=== PATIENT | female | born 1940 | race Caucasian/White ===

== ENCOUNTER → 2019-08-16 10:52 | Outpatient (CLI) | payer MEDICARE, SELFPAY ==
--- NOTE | ~2019-08-16 | MM_ITS ---
EXAMINATION: MM screening [facility] BI w yolande HISTORY: Screening mammogram TECHNIQUE: Craniocaudal and mediolateral oblique 3-D tomosynthesis images were obtained and synthetic 2-D images were generated. CAD analysis was submitted and interpreted. COMPARISON: 07/06/2018 BREAST PARENCHYMAL COMPOSITION: There are scattered areas of fibroglandular density. FINDINGS: Stable intramammary lymph nodes are noted in the upper outer quadrant of the breasts. There is no evidence of suspicious mass, calcification, or architectural distortion to suggest malignancy in either breast. There has been no suspicious interval change. IMPRESSION: 1. No mammographic evidence of malignancy. 2. Recommend routine screening mammography in one year. BI-RADS Category 2: Benign finding(s). Reviewed, dictated and finalized at location A. IAGE OPERATOR
== END ==
PROVIDERS: PCP Internal Medicine; Visit Provider Internal Medicine
DX: Z12.31 Encounter for screening mammogram for malignant neoplasm of breast (principal)
CPT/HCPCS: 77063; 77067

== ENCOUNTER 2019-10-30 12:45 | Emergency (ER) | payer MEDICARE, SELFPAY ==
[2019-10-30 12:56] VITALS: BP 104/59; PULSE 91; RESP 18; TEMP 36.8; O2SAT 97
--- NOTE | 2019-10-30 13:08 | ED.GENADULT ---
HPI - General Adult General Chief complaint: Unspecified Stated complaint: thrush Time Seen by Provider: 10/30/19 13:09 Source: patient and RN notes reviewed History of Present Illness HPI narrative: Patient is a 79-year-old female presents the urgent care with complaints of oral thrush. Patient states that it started approximately 2 to 3 weeks ago. States that she does use a tongue scraper. Patient states that it has gotten brown . However patient does report of eating chocolate and drinking a lot of coffee. Patient denies any history of oral thrush and denies any recent use of antibiotics. No other acute complaints. No acute distress noted. Patient aware of the plan of care. Related Data Home Medications Medication Instructions Recorded Confirmed amitriptyline 25 mg tablet 25 mg PO DAILY tablet 06/09/19 06/09/19 alprazolam 10/30/19 fluticasone propionate INTRANASAL 10/30/19 Allergies Allergy/AdvReac Type Severity Reaction Status Date / Time cefuroxime Allergy Mild Verified 06/08/11 10:11 ampicillin Allergy Unknown Verified 08/22/17 09:04 chlordiazepoxide Allergy Unknown Verified 08/22/17 09:04 ciprofloxacin Allergy Unknown Verified 12/07/18 13:33 codeine Allergy Unknown Verified 08/22/17 09:04 Penicillins Allergy Unknown Verified 03/07/15 14:50 tetracycline Allergy Unknown Verified 08/22/17 09:05 CIPROFLOXACIN HCL Allergy Unknown BAD Uncoded 02/16/18 15:59 SECONDARY REACTION, YEAST INFECT. ECT. CLIDINIUM BROMIDE Allergy Unknown RASH Uncoded 02/16/18 15:59 SODIUM PENTATHAL Allergy Unknown HYPERTENSIO Uncoded 07/12/13 06:56 N Review of Systems Review of Systems: Narrative: CONSTITUTIONAL: Denies fever, chills, or sweats. EYES: Denies visual changes, redness, or discharge. ENT: Denies rhinorrhea, congestion or otalgia. Reports of oral thrush and mild sore throat CARDIOVASCULAR: Denies chest pain, palpitations, or edema. RESPIRATORY: Denies cough or dyspnea. GASTROINTESTINAL: Denies abdominal pain, nausea, vomiting, or diarrhea. GENITOURINARY: Denies dysuria or hematuria. SKIN: Denies rash or itching. MUSCULOSKELETAL: Denies back pain, joint pain, or myalgia. NEUROLOGIC: Denies headache, numbness, or weakness. All other systems reviewed are negative, except as documented in HPI. PMFSH Social History Social History Smoking status: Never smoker Second hand tobacco smoke exposure: No Alcohol intake: current Comments At the time of my signature, I reviewed and agree with the nursing past medical, surgical, social, and family history. There is no relevant family history pertinent to the patient complaint. Exam Narrative: Exam Narrative: GENERAL: This is a well-nourished, well-developed patient, in no apparent distress. HEAD: normocephalic, atraumatic. EYES: PERRL. Sclera clear/white. Vision is grossly intact. EARS: External ears normal NOSE: External nose normal with no obvious nasal discharge THROAT: Mucous membranes moist, posterior pharynx clear. Very mild oral candidiasis noted to the posterior oropharynx NECK: Neck supple SKIN: warm, intact with no suspicious lesions or rash, good texture and turgor. NEURO: awake, alert, and oriented to person, place and time. There were no obvious focal neurologic abnormalities. EXTREMITIES: No clubbing, cyanosis, or edema. Course Vital Signs Vital signs: Vital Signs Temperature 98.2 F 10/30/19 12:56 Pulse Rate 91 10/30/19 12:56 Respiratory Rate 18 10/30/19 12:56 Blood Pressure 104/59 L 10/30/19 12:56 Pulse Oximetry 97 10/30/19 12:56 Temperature 98.2 F 10/30/19 12:56 Pulse Rate 91 10/30/19 12:56 Respiratory Rate 18 10/30/19 12:56 Blood Pressure 104/59 L 10/30/19 12:56 Pulse Oximetry 97 10/30/19 12:56 Reviewed Medical Decision Making MDM Narrative Medical decision making narrative: Advised the patient to continue using the t
== END 2019-10-30 13:24 | disposition home or self-care (01) ==
PROVIDERS: Emergency Provider Nurse Practitioner Family; PCP Internal Medicine
DX: B37.0 Candidal stomatitis (principal); E78.00 Pure hypercholesterolemia, unspecified; E03.9 Hypothyroidism, unspecified
CPT/HCPCS: 99213; G0463

== ENCOUNTER 2019-12-08 17:02 | Emergency (ER) | payer MEDICARE, SELFPAY ==
[2019-12-08 17:14] VITALS: BP 144/74; PULSE 82; RESP 16; TEMP 36.9; O2SAT 99
--- NOTE | 2019-12-08 17:23 | ED.URI ---
HPI - URI/Sore Throat General Chief Complaint: Upper Respiratory Infection Stated Complaint: Sore Throat Time Seen by Provider: 12/08/19 17:24 Source: patient and RN notes reviewed Mode of arrival: ambulatory Limitations: no limitations History of Present Illness HPI Narrative: This is a 71 years old female presented office for evaluation of sore throat for a couple days. Denies any other associated symptoms include fever, ear pain, cough, vomiting, or diarrhea. Denies any new medication. Related Data Home Medications Medication Instructions Recorded Confirmed amitriptyline 25 mg tablet 25 mg PO DAILY tablet 06/09/19 06/09/19 alprazolam 10/30/19 fluticasone propionate INTRANASAL 10/30/19 Allergies Allergy/AdvReac Type Severity Reaction Status Date / Time cefuroxime Allergy Mild Verified 06/08/11 10:11 ampicillin Allergy Unknown Verified 08/22/17 09:04 chlordiazepoxide Allergy Unknown Verified 08/22/17 09:04 ciprofloxacin Allergy Unknown Verified 12/07/18 13:33 codeine Allergy Unknown Verified 08/22/17 09:04 Penicillins Allergy Unknown Verified 03/07/15 14:50 tetracycline Allergy Unknown Verified 08/22/17 09:05 CIPROFLOXACIN HCL Allergy Unknown BAD Uncoded 02/16/18 15:59 SECONDARY REACTION, YEAST INFECT. ECT. CLIDINIUM BROMIDE Allergy Unknown RASH Uncoded 02/16/18 15:59 SODIUM PENTATHAL Allergy Unknown HYPERTENSIO Uncoded 07/12/13 06:56 N Review of Systems Review of Systems: Narrative: CONSTITUTIONAL: Denies fever or feeling ill ENT: Denies rhinorrhea, congestion, otalgia. CARDIOVASCULAR: Denies chest pain RESPIRATORY: Denies dyspnea, cough GASTROINTESTINAL: Denies abdominal pain, nausea, vomiting, diarrhea. GENITOURINARY: Denies urinary symptoms SKIN: Denies rash MUSCULOSKELETAL: Denies acute back pain NEUROLOGIC: Denies lightheaded PMFSH Past Medical History Medical History Adult hypothyroidism Chronic GERD Irritable bowel syndrome with constipation Other and unspecified hyperlipidemia Postmenopausal Raynaud's disease without gangrene Family History Family History Father Cerebrovascular accident Social History Social History (Reviewed 12/08/19 @ 17:32 by ALLISON Navarro Smoking status: Never smoker Second hand tobacco smoke exposure: No Alcohol intake: current Gender identity (if verbalized by the patient): Female Comments At time of signature, I agree with nursing past medical, surgical, social and family history. There is no relevant family history pertinent to the presenting complaint. Exam Narrative: Exam Narrative: GENERAL: This is a well-nourished, well-developed patient, in no apparent distress. THROAT: Mucous membranes moist, posterior pharynx clear. Thrush noted NECK: Neck supple, non-tender without lymphadenopathy, masses or thyromegaly. CARDIOVASCULAR: Regular rate and rhythm without murmurs, gallops, or rubs. RESPIRATORY: Clear to auscultation. Breath sounds equal bilaterally. No wheezes, rales, or rhonchi. GASTROINTESTINAL: Abdomen soft, non-tender, nondistended. Bowel sounds are active. No guarding. SKIN: warm, intact with no suspicious lesions or rash, good texture and turgor. NEURO: awake, alert, and oriented to person, place and time. There were no obvious focal neurologic abnormalities. Steady gait [place] Coma Scale Eye Opening: Spontaneous 4 [place] Coma Scale Motor: Obeys Commands 6 Sandra Coma Scale Verbal: Oriented 5 Course Vital Signs Vital signs: Vital Signs Temperature 98.5 F 12/08/19 17:14 Pulse Rate 82 12/08/19 17:14 Respiratory Rate 16 12/08/19 17:14 Blood Pressure 144/74 H 12/08/19 17:14 Pulse Oximetry 99 12/08/19 17:14 Temperature 98.5 F 12/08/19 17:14 Pulse Rate 82 12/08/19 17:14 Respiratory Rate 16 12/08/19 17:14 Blood Pressure 144/74 H 12/08/19 17:1
== END 2019-12-08 17:36 | disposition home or self-care (01) ==
PROVIDERS: Emergency Provider Nurse Practitioner; PCP Internal Medicine
DX: B37.0 Candidal stomatitis (principal); E03.9 Hypothyroidism, unspecified; K21.9 Gastro-esophageal reflux disease without esophagitis; K58.1 Irritable bowel syndrome with constipation; I73.00 Raynaud's syndrome without gangrene; R03.0 Elevated blood-pressure reading, without diagnosis of hypertension
CPT/HCPCS: 87081; 87880; 99213; G0463

== ENCOUNTER 2020-03-25 12:39 | Emergency (ER) | payer MEDICARE, SELFPAY ==
--- NOTE | ~2020-03-25 | XR_ITS ---
EXAMINATION: XR chest 2V 03/25/2020 14:24 INDICATION: Chest and upper abdominal pain PROCEDURE: 2 view chest COMPARISON: 07/02/2013 FINDINGS: The lungs are clear. The cardiomediastinal silhouette is within normal limits. There are no pleural effusions. There is no pneumothorax suspected. Mild pectus excavatum. There are cholecys tectomy clips. IMPRESSION: 1: NO ACUTE CARDIOPULMONARY DISEASE. Reviewed, dictated and finalized at location A.
--- NOTE | ~2020-03-25 | CT_ITS ---
EXAMINATION: CT abdomen pelvis w con DATE: 03/25/2020 15:15 INDICATION: Upper abdominal pain with nausea TECHNIQUE: Computed tomography (CT) of the abdomen and pelvis was performed with 100 cc Omnipaque 350 intravenous contrast. The dose-length product was 529.59 mGy-cm. Automated exposure control and iter ative reconstruction technique were employed. COMPARISON: CT dated 02/14/2015. FINDINGS: Lung bases unremarkable. Heart size normal. Small hiatal hernia. 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 Status post cholecystectomy. There is fluid in the stomach small bowel with air- fluid levels. Consider gastroenteritis in the appropriate setting. No obstruction. Colonic diverticul osis without evidence for diverticulitis. Small umbilical hernia containing fat. The liver, spleen, pancreas, adrenal glands and kidneys are unremarkable. No free air or free fluid. Status post hysterectomy. IMPRESSION: 1. Fluid in the stomach and small bowel, suspicious for gastroenteritis. No obstruction. 2: Small hiatal hernia. Reviewed, dictated and finalized at location A. IMPRESSION: 1. Fluid in the stomach and small bowel, suspicious for gastroenteritis. No obs truction. 2: Small hiatal hernia.
[2020-03-25 12:49] VITALS: BP 165/77; PULSE 90; RESP 16; TEMP 36.1; O2SAT 98
--- NOTE | 2020-03-25 13:43 | ECG_ITS ---
Measurements Intervals [place] Rate: 80 P: 46 WA: 163 QRS: 32 QRSD: 89 T: 64 QT: 372 QTc: 429 Interpretive Statements SINUS RHYTHM WITH MARKED SINUS ARRHYTHMIA ATRIAL PREMATURE COMPLEXES BASELINE ARTIFACT- I, II, III, AVR, AVL, AVF BORDERLINE ECG Electronically Signed On 03-25-2020 17:04:06 CDT by Toni Sharif D.O.
[2020-03-25 13:50] VITALS: PULSE 54
[2020-03-25] MEDS: FAMOTIDINE 20 MG/2 ML VIAL IV PUSH (14:03)
[2020-03-25] MEDS: ONDANSETRON INJ 4 MG/2 ML VIAL IV PUSH (14:04)
[2020-03-25 14:13] LABS: Alanine Aminotransferase 16 U/L (4-35); Albumin Level 4.5 g/dL (3.5-5.1); Alkaline Phosphatase 92 U/L (38-126); Anion Gap 6 mmol/L (8-16); Aspartate Amino Transferase 26 U/L (14-36); Bilirubin,Total 0.9 mg/dL (0.2-1.3); Blood Urea Nitrogen 15 mg/dL (7-17); Calcium 9.9 mg/dL (8.4-10.2); Carbon Dioxide 25 mmol/L (22-30); Chloride 104 mmol/L (98-107); Estimated CRCL calculation 47 ml/min; Estimated Glomerular Filt Rate > 60; Glucose 111 mg/dL (65-105); Lipase 59 U/L (23-300); Potassium 4.4 mmol/L (3.4-5.0); Sodium 135 mmol/L (137-145)
[2020-03-25 14:14] LABS: Basophils Percent Auto 0.5 % (0.2-1.2); Eosinophils Absolute Auto 0.1 K/mm3 (0-0.3); Immature Granulocyte Absolute 0.02 K/mm3 (0.00-0.031); Immature Granulocyte Percent A 0.3 % (0-0.5); Mean Corpuscular HGB Conc 34.1 g/dl (32-36); Mean Corpuscular Hemoglobin 31.4 pg (26-34); Mean Corpuscular Volume 92.1 fl (80-100); Monocytes Absolute Auto 0.6 K/mm3 (0.1-0.6); Monocytes Percent Auto 7.7 % (2.6-8.5); Neutrophils Percent Auto 64.5 % (45.5-73.1); Platelet Count Result 302 k/mm3 (150-375); Red Blood Count 4.78 M/mm3 (4.2-5.4); Red Cell Distribution Width 13.1 % (11.5-14.5); White Blood Count 7.7 K/mm3 (4.5-10.0)
[2020-03-25 14:27] LABS: INR 0.9; Prothrombin Time 11.9 Seconds (11.1-14.7)
--- NOTE | 2020-03-25 14:27 | PC.NURSE ---
This RN into pts room to give medication . Pt becomes upset and asks why is this all being done when i came in for thrush ? I dont see the need of all of this. I informed pt that she could decline treatment of any kind. Pt states that she will take the medication and do EKG but will not do urine sample. Informed TONYA Thomas of this.
--- NOTE | 2020-03-25 14:48 | ED.GENADULT ---
HPI - General Adult General Chief complaint: Unspecified Stated complaint: thrush Time Seen by Provider: 03/25/20 13:14 Source: patient Mode of arrival: ambulatory Limitations: other (poor historian) History of Present Illness HPI narrative: This is a 79 year old female that presents to the ER with possible thrush. Reports she has been treated for this recently and started to have some symptoms again today. Reports nausea and upper abdominal pain. Reports the pain is burning. Denies fever, sore throat, chest pain, shortness of breath or dysuria. Related Data Home Medications Medication Instructions Recorded Confirmed amitriptyline 25 mg tablet 25 mg PO DAILY tablet 06/09/19 06/09/19 alprazolam 10/30/19 fluticasone propionate INTRANASAL 10/30/19 Allergies Allergy/AdvReac Type Severity Reaction Status Date / Time cefuroxime Allergy Mild Unknown Verified 03/25/20 12:53 ampicillin Allergy Unknown Unknown Verified 03/25/20 12:53 chlordiazepoxide Allergy Unknown Unknown Verified 03/25/20 12:53 ciprofloxacin Allergy Unknown Unknown Verified 03/25/20 12:53 codeine Allergy Unknown Unknown Verified 03/25/20 12:53 Penicillins Allergy Unknown Unknown Verified 03/25/20 12:53 tetracycline Allergy Unknown Unknown Verified 03/25/20 12:53 CIPROFLOXACIN HCL Allergy Unknown BAD Uncoded 03/25/20 12:54 SECONDARY REACTION, YEAST INFECT. ECT. CLIDINIUM BROMIDE Allergy Unknown RASH Uncoded 03/25/20 12:54 SODIUM PENTATHAL Allergy Unknown HYPERTENSIO Uncoded 03/25/20 12:54 N Review of Systems Review of Systems: Narrative: CONSTITUTIONAL: Denies fever ENT: Denies sore throat CARDIOVASCULAR: Reports chest pain RESPIRATORY: Denies dyspnea. GASTROINTESTINAL: Reports abdominal pain, nausea. Denies vomiting GENITOURINARY: Denies dysuria All systems reviewed & are unremarkable except as noted in HPI and below PMFSH Social History Social History Smoking status: Never smoker Second hand tobacco smoke exposure: No Alcohol intake: current Gender identity (if verbalized by the patient): Female Exam Narrative: Exam Narrative: GENERAL: Elderly, well-nourished, and in no acute distress. HEAD: Normocephalic, atraumatic. EYES: EOMI. ENT: Nares clear, no rhinorrhea or epistaxis. Mucous membranes moist. Oropharynx without tonsillar hypertrophy exudate or other lesions. No evidence of thrush. Bilateral TMs pearly ponce non-bulging NECK: Supple. No adenopathy or masses. CHEST: Clear to auscultation. No respiratory distress. No wheezes rales or rhonchi HEART: Regular rate and rhythm. No murmur heard. Normal peripheral pulses. ABDOMEN: Soft, nondistended, normal active bowel sounds. Mild tenderness to palpation in the epigastrium, without guarding EXTREMITIES: Normal range of motion. No edema. SKIN: Warm, dry, no rash. NEURO: No focal deficits. Alert and oriented x3. PSYCH: Normal mood and affect Course Vital Signs Vital signs: Vital Signs Temperature 97 F L 03/25/20 12:49 Pulse Rate 90 03/25/20 12:49 Respiratory Rate 16 03/25/20 12:49 Blood Pressure 165/77 H 03/25/20 12:49 Pulse Oximetry 98 03/25/20 12:49 Temperature 97 F L 03/25/20 12:49 Pulse Rate 54 L 03/25/20 13:50 Respiratory Rate 16 03/25/20 12:49 Blood Pressure 165/77 H 03/25/20 12:49 Pulse Oximetry 98 03/25/20 12:49 Medical Decision Making MDM Narrative Medical decision making narrative: Patient presents to the emergency department for upper abdominal discomfort and nausea. Reports she had been diagnosed with thrush recently and was worried she had thrush again. No evidence of thrush on exam today. She is afebrile and nontoxic-appearing. CBC is without leukocytosis. Metabolic panel without concerning findings. Lipase is normal. CT scan of the abdomen and pelvis is suspicious for gastroenteritis. Chest x-ray without acute findings. EKG without concerning c
[2020-03-25 15:58] VITALS: BP 137/73; PULSE 88; RESP 18; O2SAT 98
== END 2020-03-25 16:24 | disposition home or self-care (01) ==
PROVIDERS: Physician Assistant; Emergency Provider Emergency Medicine; PCP Internal Medicine
DX: K52.9 Noninfective gastroenteritis and colitis, unspecified (principal); K44.9 Diaphragmatic hernia without obstruction or gangrene; I49.1 Atrial premature depolarization
CPT/HCPCS: 36415; 71046; 74177; 80053; 83690; 85025; 85610; 85730; 93005; 96374; 96375; 99284; J2405; Q9967

== ENCOUNTER 2020-08-08 13:08 | Emergency (ER) | payer MEDICARE, SELFPAY ==
--- NOTE | ~2020-08-08 | XR_ITS ---
EXAMINATION: XR chest 2V 08/08/2020 13:50 INDICATION: Cough. Transient alteration of awareness. PROCEDURE: 2 view chest COMPARISON: 03/25/2020 FINDINGS: The lungs are clear. The cardiomediastinal silhouette is within normal limits. There are no pleural effusions. There is no pneumothorax suspected. IMPRESSION: 1: NO ACUTE CARDIOPULMONARY DISEASE. Reviewed, dictated and finalized at location B. H COORDINATOR
[2020-08-08 13:12] VITALS: BP 113/76; PULSE 94; RESP 18; TEMP 36.4; O2SAT 98
--- NOTE | 2020-08-08 13:35 | PC.NURSE ---
Spoke with granddaughter (Nneka) in regards to patient's memory status. Per Nneka she is forgetful and lately have had a hard time keeping patient on topic when speaking to her.
--- NOTE | 2020-08-08 13:46 | ED.GENADULT ---
HPI - General Adult General Chief complaint: Upper Respiratory Infection Stated complaint: cold symptoms, wants COVID swabbed Time Seen by Provider: 08/08/20 13:28 History of Present Illness HPI narrative: Patient is a 79-year-old female that presents the emergency department with chief complaint of thrush and postnasal drip. Patient was seen at urgent care and was sent to the emergency department because they wanted her tested for COVID-19. Patient currently denies shortness of breath denies fever states that she has had thrush before in her throat feels like whenever she has had thrush past. Patient states that she has had a postnasal drip that is trickling down the back of her throat and has been causing her problems. Related Data Home Medications Medication Instructions Recorded Confirmed amitriptyline 25 mg tablet 25 mg PO DAILY tablet 06/09/19 06/15/20 alprazolam 10/30/19 06/15/20 fluticasone propionate INTRANASAL 10/30/19 06/15/20 Allergies Allergy/AdvReac Type Severity Reaction Status Date / Time ampicillin Allergy Mild Rash Verified 08/08/20 13:19 cefuroxime Allergy Mild Hives Verified 08/08/20 13:19 chlordiazepoxide Allergy Mild Hives Verified 08/08/20 13:19 ciprofloxacin Allergy Mild Diarrhea Verified 08/08/20 13:19 codeine Allergy Mild pt does Verified 08/08/20 13:19 not know Penicillins Allergy Mild pt does Verified 08/08/20 13:19 not know tetracycline Allergy Mild pt does Verified 08/08/20 13:19 not know CIPROFLOXACIN HCL Allergy Mild BAD Uncoded 08/08/20 13:19 SECONDARY REACTION, YEAST INFECT. ECT. CLIDINIUM BROMIDE Allergy Mild RASH Uncoded 08/08/20 13:19 SODIUM PENTATHAL Allergy Mild HYPERTENSIO Uncoded 08/08/20 13:19 N Review of Systems Review of Systems: Narrative: A 10 system review of systems was completed on the patient and is negative except for what is stated in the HPI. Nursing and ancillary documentation was reviewed. [facility] Past Medical History Medical History (Updated 08/08/20 @ 14:24 by Ayo Villalta MD) Adult hypothyroidism Chronic GERD Irritable bowel syndrome with constipation Other and unspecified hyperlipidemia Postmenopausal Raynaud's disease without gangrene Family History Family History Father Cerebrovascular accident Social History Social History Smoking status: Never smoker Second hand tobacco smoke exposure: No Alcohol intake: current Gender identity (if verbalized by the patient): Female Exam Narrative: Exam Narrative: GENERAL: Well-appearing, well-nourished, and in no acute distress. HEAD: Normocephalic, atraumatic. EYES: PERRLA and EOMI. ENT: Nares clear, no rhinorrhea or epistaxis. Mucous membranes moist. NECK: Supple. CHEST: Clear to auscultation. No respiratory distress. HEART: Regular rate and rhythm. No murmur heard. Normal peripheral pulses. ABDOMEN: Soft, nontender, nondistended, normal active bowel sounds. EXTREMITIES: Normal range of motion. No edema. SKIN: Warm, dry, no rash. NEURO: No focal deficits. Alert somewhat confused but this is the patient's baseline. PSYCH: Normal mood and affect. Course Vital Signs Vital signs: Vital Signs Temperature 36.4 C L 08/08/20 13:12 Pulse Rate 94 08/08/20 13:12 Respiratory Rate 18 08/08/20 13:12 Blood Pressure 113/76 08/08/20 13:12 Pulse Oximetry 98 08/08/20 13:12 Temperature 36.4 C L 08/08/20 13:12 Pulse Rate 94 08/08/20 13:12 Respiratory Rate 18 08/08/20 13:12 Blood Pressure 113/76 08/08/20 13:12 Pulse Oximetry 98 08/08/20 13:12 Medical Decision Making Vital Signs Vital Signs: Vital Signs Temperature 36.4 C L 08/08/20 13:12 Pulse Rate 94 08/08/20 13:12 Respiratory Rate 18 08/08/20 13:12 Blood Pressure 113/76 08/08/20 13:12 Pulse Oximetry 98 08/08/20
[2020-08-08 22:50] LABS: SARS-CoV-2 RNA PCR Negative
== END 2020-08-08 14:42 | disposition home or self-care (01) ==
PROVIDERS: Emergency Provider Emergency Medicine; PCP Internal Medicine
DX: B37.0 Candidal stomatitis (principal); J06.9 Acute upper respiratory infection, unspecified; Z20.822 Contact with and (suspected) exposure to COVID-19; E03.9 Hypothyroidism, unspecified; K21.9 Gastro-esophageal reflux disease without esophagitis; K58.1 Irritable bowel syndrome with constipation; I73.00 Raynaud's syndrome without gangrene; E78.5 Hyperlipidemia, unspecified
CPT/HCPCS: 71046; 87081; 87880; 99283; C9803; U0003; U0005

== ENCOUNTER 2020-09-19 15:59 | Emergency (ER) | payer MEDICARE, SELFPAY ==
[2020-09-19 16:15] VITALS: BP 146/80; PULSE 98; RESP 17; TEMP 35.7; O2SAT 96
--- NOTE | 2020-09-19 20:09 | ED.GENADULT ---
HPI - General Adult General Chief complaint: Dental/Oral Stated complaint: thrush on tongue Time Seen by Provider: 09/19/20 18:30 Source: patient and family () Mode of arrival: ambulatory Limitations: no limitations History of Present Illness HPI narrative: Patient presents with chief complaint of thrush on her tongue and postnasal drip. Patient states that she has recurrent thrush. Patient does not know why. Patient denies itching or pain in her mouth. Patient reports postnasal drip and states she has been taking some allergy medicine but cannot recall the name. Patient states she used to take Flonase but has not been taking it recently or regularly. She denies fever, chills, sore throat, inability to swallow or handle her fluids or confusion. Patient denies diabetes, autoimmune diseases. Related Data Home Medications Medication Instructions Recorded Confirmed amitriptyline 25 mg tablet 25 mg PO DAILY tablet 06/09/19 06/15/20 alprazolam 10/30/19 06/15/20 fluticasone propionate INTRANASAL 10/30/19 06/15/20 Allergies Allergy/AdvReac Type Severity Reaction Status Date / Time ampicillin Allergy Mild Rash Verified 08/08/20 13:19 cefuroxime Allergy Mild Hives Verified 08/08/20 13:19 chlordiazepoxide Allergy Mild Hives Verified 08/08/20 13:19 ciprofloxacin Allergy Mild Diarrhea Verified 08/08/20 13:19 codeine Allergy Mild pt does Verified 08/08/20 13:19 not know Penicillins Allergy Mild pt does Verified 08/08/20 13:19 not know tetracycline Allergy Mild pt does Verified 08/08/20 13:19 not know CIPROFLOXACIN HCL Allergy Mild BAD Uncoded 08/08/20 13:19 SECONDARY REACTION, YEAST INFECT. ECT. CLIDINIUM BROMIDE Allergy Mild RASH Uncoded 08/08/20 13:19 SODIUM PENTATHAL Allergy Mild HYPERTENSIO Uncoded 08/08/20 13:19 N Review of Systems Review of Systems: Narrative: CONSTITUTIONAL: Denies fever, chills, or sweats. EYES: Denies visual changes, redness, or discharge. ENT: Reports thrush and postnasal drip denies rhinorrhea, congestion, sore throat, or otalgia. CARDIOVASCULAR: Denies chest pain, palpitations, or edema. RESPIRATORY: Denies cough or dyspnea. GASTROINTESTINAL: Denies abdominal pain, nausea, vomiting, or diarrhea. GENITOURINARY: Denies dysuria or hematuria. SKIN: Denies rash or itching. MUSCULOSKELETAL: Denies back pain, joint pain, or myalgia. NEUROLOGIC: Denies headache, numbness, dizziness, or weakness. PSYCHIATRIC: Denies anxiety or depression. [facility] Past Medical History Medical History (Updated 09/19/20 @ 20:12 by Seth Hurd PA-C) Adult hypothyroidism Chronic GERD Irritable bowel syndrome with constipation Other and unspecified hyperlipidemia Postmenopausal Raynaud's disease without gangrene Family History Family History Father Cerebrovascular accident Social History Social History Smoking status: Never smoker Second hand tobacco smoke exposure: No Alcohol intake: current Gender identity (if verbalized by the patient): Female Exam Narrative: Exam Narrative: GENERAL: Well-appearing, well-nourished, and in no acute distress. HEAD: Normocephalic, atraumatic. EYES: PERRLA and EOMI. ENT: Nares clear, no rhinorrhea or epistaxis. Mucous membranes moist. Oropharynx without tonsillar hypertrophy exudate or other lesions. Small white film noted to patient's tongue. 1-2 spots to mucus membrane. Not painful. Bilateral TMs pearly ponce nonbulging NECK: Supple. No adenopathy or masses. No carotid bruits or JVD CHEST: No respiratory distress. No tachypnea. EXTREMITIES: Normal range of motion. No edema. SKIN: Warm, dry, no rash. NEURO: No focal deficits. Alert and oriented x3. PSYCH: Normal mood and affect. Course Vital Signs Vital signs: Vital Signs Temperature 96.2 F L 09/19/20 16:15 Pulse Rate 98
== END 2020-09-19 20:32 | disposition home or self-care (01) ==
PROVIDERS: Emergency Provider Emergency Medicine; PCP Internal Medicine
DX: B37.0 Candidal stomatitis (principal); R09.82 Postnasal drip; E03.9 Hypothyroidism, unspecified; K21.9 Gastro-esophageal reflux disease without esophagitis; K58.1 Irritable bowel syndrome with constipation; E78.5 Hyperlipidemia, unspecified; I73.00 Raynaud's syndrome without gangrene
CPT/HCPCS: 99283

== ENCOUNTER 2020-10-30 13:51 | Emergency (ER) | payer MEDICARE, SELFPAY ==
[2020-10-30 13:58] VITALS: BP 122/84; PULSE 105; RESP 18; TEMP 35.9; O2SAT 97
--- NOTE | 2020-10-30 14:44 | ED.NAVMDI ---
HPI - Nausea/Vomiting/Diarrhea General Chief complaint: Nausea/Vomiting/Diarrhea Stated complaint: Nausea Time Seen by Provider: 10/30/20 14:44 Source: patient Mode of arrival: ambulatory Limitations: no limitations History of Present Illness HPI Narrative: Rima Prescott is a 80 yo female with a PMH of anxiety, recurrent thrush, allergies, hypothyroid, high cholesterol, who comes to [facility] with complaints of cough, nasal drainage, and continued white coating on tongue. She was seen 3 days ago by her primary care physician who again diagnosed her with thrush and gave her troches, based on complaints of a sore mouth at the time of the visit. The patient nor her are able to explain why the patient does not want to eat-also states that she has not been taking fluids like her normal daily coffee and eats some but much smaller quantities than usual-she states she sometimes feels nauseated and that she has drainage in the back of her throat that makes her cough Related Data Home Medications Medication Instructions Recorded Confirmed amitriptyline 25 mg tablet 25 mg PO DAILY tablet 06/09/19 10/30/20 alprazolam 0.25 mg PO DIRECTED 10/30/19 10/30/20 Allergies Allergy/AdvReac Type Severity Reaction Status Date / Time ampicillin Allergy Mild Rash Verified 10/30/20 14:00 cefuroxime Allergy Mild Hives Verified 10/30/20 14:00 chlordiazepoxide Allergy Mild Hives Verified 10/30/20 14:00 ciprofloxacin Allergy Mild Diarrhea Verified 10/30/20 14:00 codeine Allergy Mild pt does Verified 10/30/20 14:00 not know Penicillins Allergy Mild pt does Verified 10/30/20 14:00 not know tetracycline Allergy Mild pt does Verified 10/30/20 14:00 not know CIPROFLOXACIN HCL Allergy Mild BAD Uncoded 10/30/20 14:00 SECONDARY REACTION, YEAST INFECT. ECT. CLIDINIUM BROMIDE Allergy Mild RASH Uncoded 10/30/20 14:00 SODIUM PENTATHAL Allergy Mild HYPERTENSIO Uncoded 10/30/20 14:00 N Review of Systems Review of Systems: Narrative: CONSTITUTIONAL: Denies fever, chills, sweats. EYES: Denies visual changes, redness, discharge. ENT: Denies rhinorrhea, congestion, sore throat, otalgia. CARDIOVASCULAR: Denies chest pain, palpitations, edema. RESPIRATORY: Denies dyspnea, wheezing, cough GASTROINTESTINAL: Denies abdominal pain, nausea, vomiting, diarrhea. GENITOURINARY: Denies dysuria, hematuria, abnormal discharge; mouth pain, feeling of cough and nasal drainage SKIN: Denies rash or itching. NEUROLOGIC: Denies numbness, or focal weakness. PSYCHIATRIC: Denies anxiety or depression. [facility] Past Medical History Medical History (Updated 10/30/20 @ 15:00 by Matilde Roas CNP) Adult hypothyroidism Chronic GERD Irritable bowel syndrome with constipation Other and unspecified hyperlipidemia Postmenopausal Raynaud's disease without gangrene Family History Family History Father Cerebrovascular accident Social History Social History Second hand tobacco smoke exposure: No Alcohol intake: current Gender identity (if verbalized by the patient): Female Comments At time of signature, I agree with nursing past medical, surgical, social and family history. There is no relevant family history pertinent to the presenting complaint. Exam Narrative: Exam Narrative: GENERAL: This is a well-nourished, well-developed patient, in mild distress. HEAD: normocephalic, atraumatic. EYES: Sclera clear/white. Vision is grossly intact. EARS: External ears normal, Hearing grossly intact. NOSE: External nose normal without nasal discharge, nares without redness, no rhinorrhea. THROAT: Mucous membranes moist, posterior pharynx mild erythema, has white coating to the tongue NECK: Neck supple, non-tender CARDIOVASCULAR: Regular rate and rhythm without murmurs, gallops, or rubs. RESPIRATORY: Clear to auscul
--- NOTE | 2020-10-30 15:14 | PC.NURSE ---
1500-- explained to pt and family that we would like to get a urine specimen, and given pt instructions on how to wipe with towelette, and hat placed in toilet, telling pt to sit forwards to be able to pee in the hat. 1510- pt came out of the restroom and back to the exam room which is directly across the weiner, water in toilet is yellow and no urine in the hat at present. [employer] notified.
== END 2020-10-30 16:40 | disposition home or self-care (01) ==
PROVIDERS: Emergency Provider Nurse Practitioner
DX: R05 Cough (principal); R09.82 Postnasal drip; R41.3 Other amnesia; E03.9 Hypothyroidism, unspecified; K21.9 Gastro-esophageal reflux disease without esophagitis; E78.5 Hyperlipidemia, unspecified; I73.00 Raynaud's syndrome without gangrene; F41.9 Anxiety disorder, unspecified
CPT/HCPCS: 81003; 87086; 99213; G0463

== ENCOUNTER 2020-12-20 12:47 | Outpatient (CLI) | payer MEDICARE, SELFPAY ==
[2020-12-20 13:38] LABS: Basophils Absolute Auto 0.1 K/mm3 (0.0-0.1); Basophils Percent Auto 0.5 % (0.2-1.2); Eosinophils Absolute Auto 0.1 K/mm3 (0-0.3); Eosinophils Percent Auto 0.5 % (0-4.4); Hematocrit 41.4 % (37.0-47.0); Hemoglobin 13.9 g/dL (12.0-15.0); Immature Granulocyte Absolute 0.04 K/mm3 (0.00-0.031); Immature Granulocyte Percent A 0.4 % (0-0.5); Lymphocytes Absolute Auto 1.18 K/mm3 (0.9-3.2); Mean Corpuscular HGB Conc 33.6 g/dl (32-36); Mean Corpuscular Hemoglobin 31.7 pg (26-34); Mean Corpuscular Volume 94.3 fl (80-100); Mean Platelet Volume 9.5 fl (7.4-10.4); Monocytes Absolute Auto 0.7 K/mm3 (0.1-0.6); Monocytes Percent Auto 7.9 % (2.6-8.5); Neutrophils Absolute Auto 7.1 K/mm3 (1.3-6.7); Neutrophils Percent Auto 77.7 % (45.5-73.1); Platelet Count Result 310 k/mm3 (150-375); Red Blood Count 4.39 M/mm3 (4.2-5.4); White Blood Count 9.1 K/mm3 (4.5-10.0)
[2020-12-20 13:42] LABS: Hemoglobin A1C 5.3 % (<5.7)
[2020-12-20 13:46] LABS: Alanine Aminotransferase 15 U/L (4-35); Albumin Level 4.3 g/dL (3.5-5.1); Alkaline Phosphatase 102 U/L (38-126); Anion Gap 9 mmol/L (8-16); Aspartate Amino Transferase 21 U/L (14-36); Blood Urea Nitrogen 12 mg/dL (7-17); CRP 1.1 mg/dL (<1.0); Calcium 10.1 mg/dL (8.4-10.2); Carbon Dioxide 24 mmol/L (22-30); Chloride 106 mmol/L (98-107); Estimated Glomerular Filt Rate 60; Glucose 104 mg/dL (65-105); Potassium 4.2 mmol/L (3.4-5.0); Sodium 139 mmol/L (137-145)
[2020-12-20 14:14] LABS: Thyroid Stimulating Hormone 0.215 uIU/mL (0.465-4.680)
[2020-12-20 14:49] LABS: Folic Acid 8.3 ng/mL (2.76->20)
[2020-12-20 14:53] LABS: Erythrocyte Sedimentation Rate 50 mm/hr (0-20)
[2020-12-20 15:30] LABS: Iron 38 ug/dL (37-170)
[2020-12-20 15:40] LABS: Percent Iron Saturation 13 % (20-50)
[2020-12-20 15:49] LABS: Free T4 Free Thyroxine 1.66 ng/mL (0.78-2.19)
[2020-12-23 12:11] LABS: Vitamin B6 5.3 ng/mL (2.1-21.7)
[2020-12-23 16:28] LABS: Vitamin D 1,25 (OH)2 Total 26 pg/mL (18-72); Vitamin D2 1,25 (OH)2 <8 pg/mL; Vitamin D3 1,25 (OH)2 26 pg/mL
[2020-12-24 08:13] LABS: Triiodothyronine T3 Free 2.6 pg/mL (2.3-4.2)
[2020-12-25 04:39] LABS: Vitamin B1 9 nmol/L (8-30)
[2020-12-27 15:22] LABS: Vitamin B2 19.2 nmol/L (6.2-39.0)
== END 2020-12-20 12:48 | disposition home or self-care (01) ==
PROVIDERS: PCP Internal Medicine; Visit Provider Internal Medicine
DX: E03.9 Hypothyroidism, unspecified (principal); Z79.899 Other long term (current) drug therapy; R41.3 Other amnesia; Z86.2 Personal history of diseases of the blood and blood-forming organs and certain disorders involving the immune mechanism; E55.9 Vitamin D deficiency, unspecified
CPT/HCPCS: 36415; 80053; 82607; 82652; 82728; 82746; 83036; 83540; 83550; 84207; 84252; 84425; 84439; 84443; 84481; 85025; 85652; 86140

== ENCOUNTER 2020-12-20 13:42 | Emergency (ER) | payer MEDICARE, SELFPAY ==
--- NOTE | ~2020-12-20 | XR_ITS ---
EXAMINATION: XR chest 1V 12/20/2020 14:47 INDICATION: Vomiting. Dyspnea. PROCEDURE: AP view of the chest COMPARISON: 08/08/2020 FINDINGS: The lungs are clear. The cardiomediastinal silhouette is within normal limits. There are no pleural effusions. There is no pneumothorax suspected. Left costophrenic recess is excluded. The re is atherosclerosis of the aorta. IMPRESSION: 1: NO ACUTE CARDIOPULMONARY DISEASE. Reviewed, dictated and finalized at location B.
--- NOTE | ~2020-12-20 | CT_ITS ---
EXAMINATION: CT brain wo con DATE: 12/20/2020 14:39 INDICATION: Confusion and weakness TECHNIQUE: Computed tomography (CT) of the head was performed without intravenous contrast. Sagittal and coronal reconstructions were performed. The mA was adjusted according to patient size. Iterative reconstruction technique was employed. The dose-length product was 605.33 mGy-cm. COMPARISON: head CT dated 10/16/2016 FINDINGS: No acute intracranial hemorrhage, acute infarction or abnormal extra axial fluid collection. There is mild scattered white matter hypoattenuation consistent with chronic small vessel ischemic disease. S ymmetric prominence of the sulci and ventricles consistent with mild to moderate age-appropriate diff use cerebral volume loss. No mass/mass effect. Mild mucosal thickening the posterior right ethmoid s inus. The orbits and mastoid air cells are normal. Intracranial calcified cerebral atherosclerosis is noted. IMPRESSION: 1. Age-related changes including mild to moderate diffuse volume loss and mild scattered white matter hypoattenuation consistent with chronic small vessel ischemic disease. No acute intracranial process . Reviewed, dictated and finalized at location A. IMPRESSION: 1. Age-related changes including mild to moderate diffuse volume loss and mild scattered white matter hypoattenuation consistent with chronic small vessel isc hemic disease. No acute intracranial process.
[2020-12-20 13:47] VITALS: BP 84/49; PULSE 111; RESP 16; TEMP 35.7; O2SAT 99
--- NOTE | 2020-12-20 14:01 | ECG_ITS ---
Measurements Intervals [place] Rate: 92 P: 17 OH: 170 QRS: -4 QRSD: 81 T: 52 QT: 333 QTc: 413 Interpretive Statements SINUS RHYTHM ATRIAL PREMATURE COMPLEXES AND FREQUENT ATRIAL COUPLETS BASELINE ARTIFACT- I, II, III, AVR, AVL, AVF, V1-V6 ABNORMAL ECG Electronically Signed On 12-20-2020 15:01:55 CDT by Toni Sharif D.O.
--- NOTE | 2020-12-20 14:14 | ED.GENADULT ---
HPI - General Adult General Chief complaint: Weakness Stated complaint: N/V Time Seen by Provider: 12/20/20 14:00 History of Present Illness HPI narrative: 80 years old white female brought to the emergency room by her because of vomiting once. Patient status post second dose of modern vaccine yesterday. Denied any abnormal reaction to the first dose of the vaccine. Patient been complaining of intermittent sharp left-sided headache for the last few days, was seen by her family physician, scheduled to get CAT scan of the head today, in the way to the CAT scan patient vomited once then brought to the emergency room for further evaluation. Currently patient denying any headache or any other symptoms. Basically complaining that she is starving and would like to eat. Patient denies any fever, chills, chest pain, shortness of breath, back pain, abdominal pain or urinary symptoms. Related Data Home Medications Medication Instructions Recorded Confirmed amitriptyline 25 mg tablet 25 mg PO DAILY tablet 06/09/19 11/30/20 alprazolam 0.25 mg PO DIRECTED 10/30/19 11/30/20 Allergies Allergy/AdvReac Type Severity Reaction Status Date / Time ampicillin Allergy Mild Rash Verified 12/20/20 11:56 cefuroxime Allergy Mild Hives Verified 12/20/20 11:56 chlordiazepoxide Allergy Mild Hives Verified 12/20/20 11:56 ciprofloxacin Allergy Mild Diarrhea Verified 12/20/20 11:56 codeine Allergy Mild pt does Verified 12/20/20 11:56 not know Penicillins Allergy Mild pt does Verified 12/20/20 11:56 not know tetracycline Allergy Mild pt does Verified 12/20/20 11:56 not know CIPROFLOXACIN HCL Allergy Mild BAD Uncoded 12/20/20 11:56 SECONDARY REACTION, YEAST INFECT. ECT. CLIDINIUM BROMIDE Allergy Mild RASH Uncoded 12/20/20 11:56 SODIUM PENTATHAL Allergy Mild HYPERTENSIO Uncoded 12/20/20 11:56 N Review of Systems Review of Systems: Narrative: CONSTITUTIONAL: Denies fever, chills, or sweats. EYES: Denies visual changes, redness, or discharge. ENT: Denies rhinorrhea, congestion, sore throat, or otalgia. CARDIOVASCULAR: Denies chest pain, palpitations, or edema. RESPIRATORY: Denies cough or dyspnea. GASTROINTESTINAL: Denies abdominal pain, nausea, vomiting, or diarrhea. GENITOURINARY: Denies dysuria or hematuria. SKIN: Denies rash or itching. MUSCULOSKELETAL: Denies back pain, joint pain, or myalgia. NEUROLOGIC: Denies headache, numbness, or weakness. PSYCHIATRIC: Denies anxiety or depression. [facility] Past Medical History Medical History Acute intractable headache Adult hypothyroidism BMI 23.0-23.9, adult Chronic GERD Cognitive dysfunction Encounter to establish care Follow up Irritable bowel syndrome with constipation Myalgia Nausea On terminal operator drug therapy Other and unspecified hyperlipidemia Postmenopausal Raynaud's disease without gangrene Family History Family History Father Cerebrovascular accident Social History Social History Smoking status: Never smoker Second hand tobacco smoke exposure: No Alcohol intake: current Gender identity (if verbalized by the patient): Female Exam Narrative: Exam Narrative: General appearance: Well-developed, well-nourished, at the bedside Skin: Normal color Head: Normocephalic, nontraumatic Eyes: Clear conjunctiva ENT: Oropharynx normal, ears normal, nose normal Neck: Supple, nontender Chest and respiratory: Airway patent, no respiratory distress, no accessory muscle use Heart: Regular rate/rhythm Abdomen: Soft, nontender, no organomegaly, quiet bowel sounds Vascular: Normal peripheral pulses, normal capillary refill. Musculoskeletal: Normal range of motion, nontender back Neurologic: Alert and oriented oriented to her name only
[2020-12-20 14:30] VITALS: BP 127/74; PULSE 62; O2SAT 98
[2020-12-20 14:57] LABS: Basophils Percent Auto 0.3 % (0.2-1.2); Eosinophils Percent Auto 0.4 % (0-4.4); Hematocrit 44.8 % (37.0-47.0); Hemoglobin 14.7 g/dL (12.0-15.0); Immature Granulocyte Absolute 0.04 K/mm3 (0.00-0.031); Immature Granulocyte Percent A 0.4 % (0-0.5); Lymphocytes Absolute Auto 1.26 K/mm3 (0.9-3.2); Lymphocytes Percent Auto 14.1 % (18.3-44.2); Mean Corpuscular HGB Conc 32.8 g/dl (32-36); Mean Corpuscular Hemoglobin 31.9 pg (26-34); Mean Corpuscular Volume 97.2 fl (80-100); Mean Platelet Volume 9.7 fl (7.4-10.4); Monocytes Absolute Auto 0.7 K/mm3 (0.1-0.6); Neutrophils Absolute Auto 6.8 K/mm3 (1.3-6.7); Neutrophils Percent Auto 76.8 % (45.5-73.1); Platelet Count Result 315 k/mm3 (150-375); Red Blood Count 4.61 M/mm3 (4.2-5.4); Red Cell Distribution Width 14.2 % (11.5-14.5); White Blood Count 8.9 K/mm3 (4.5-10.0)
[2020-12-20 15:05] LABS: Alanine Aminotransferase 15 U/L (4-35); Albumin Level 4.4 g/dL (3.5-5.1); Alkaline Phosphatase 102 U/L (38-126); Anion Gap 10 mmol/L (8-16); Aspartate Amino Transferase 24 U/L (14-36); Blood Urea Nitrogen 13 mg/dL (7-17); Calcium 10.1 mg/dL (8.4-10.2); Carbon Dioxide 25 mmol/L (22-30); Chloride 105 mmol/L (98-107); Estimated CRCL calculation 39 ml/min; Estimated Glomerular Filt Rate 53; Glucose 110 mg/dL (65-105); Lipase 73 U/L (23-300); Sodium 140 mmol/L (137-145)
[2020-12-20 15:22] LABS: Troponin I < 0.012 ng/mL (0.000-0.034)
[2020-12-20 15:30] VITALS: BP 112/68; PULSE 70; RESP 16; O2SAT 97
[2020-12-20 16:02] VITALS: BP 129/70; PULSE 64; RESP 16; TEMP 36.7; O2SAT 93
[2020-12-20 16:03] LABS: Erythrocyte Sedimentation Rate 25 mm/hr (0-20)
== END 2020-12-20 16:04 | disposition home or self-care (01) ==
PROVIDERS: Emergency Provider Emergency Medicine; PCP Internal Medicine
DX: R51.9 Headache, unspecified (principal); R11.11 Vomiting without nausea
CPT/HCPCS: 36415; 51701; 70450; 71045; 80053; 82607; 82652; 82728; 82746; 83036; 83540; 83550; 83690; 84207; 84252; 84425; 84439; 84443; 84481; 84484; 85025; 85652; 86140; 93005; 99284

== ENCOUNTER 2021-01-15 13:37 | Emergency (ER) | payer MEDICARE, SELFPAY ==
--- NOTE | 2021-01-15 13:44 | ED.GENADULT ---
HPI - General Adult General Chief complaint: Urogenital-Female Stated complaint: uti Time Seen by Provider: 01/15/21 13:44 Source: patient and RN notes reviewed Mode of arrival: ambulatory Limitations: no limitations History of Present Illness HPI narrative: 80-year-old female presents with vaginal discomfort for the past 30 days. Rima reports increasing symptoms over the past 7 days with urinary complaints. Dysuria consists of burning and urgency. No treatment. Denies fever. ?No significant pelvic pain. No vaginal discharge.? No concerns for STDs. ?Exacerbating factors urinating.? Denies hematuria or vaginal bleeding. No flank pain. ?Denies nausea, vomiting, and abdominal pain. Tolerating liquids well.? Remains active. The patient reports she has not been diagnosed with COVID-19. ?The patient reports she received 2 COVID-19 vaccines. The patient reports she is not waiting for the results of a COVID-19 lab test. The patient reports he does not have chills, weakness, or fatigue. ?The patient reports he does not have a new or worsening cough or shortness of breath. Denies chest pain. ?The patient reports he does not have any rhinorrhea, congestion, loss of taste or smell, sore throat, and diarrhea. ?Denies recent traveling. Denies concerns for COVID-19 or exposures. ?At this time, the patient is not suspected of having COVID-19. ? Some parts of this dictation were generated by voice recognition software and may contain typographical and/or grammatical inaccuracies. Related Data Home Medications Medication Instructions Recorded Confirmed amitriptyline 25 mg tablet 25 mg PO DAILY tablet 06/09/19 01/17/21 alprazolam 0.25 mg PO DIRECTED PRN 10/30/19 01/17/21 thiamine HCl (vitamin B1) 100 mg 100 mg PO DAILY 12/27/20 01/17/21 tablet vitamin B complex 1 tablet PO DAILY 12/27/20 01/17/21 Allergies Allergy/AdvReac Type Severity Reaction Status Date / Time Penicillins Allergy Severe Anaphylaxis Verified 01/15/21 14:04 ampicillin Allergy Mild Rash Verified 01/15/21 14:04 cefuroxime Allergy Mild Hives Verified 01/15/21 14:04 chlordiazepoxide Allergy Mild Hives Verified 01/15/21 14:04 ciprofloxacin Allergy Mild Diarrhea Verified 01/15/21 14:04 codeine Allergy Mild pt does Verified 01/15/21 14:04 not know tetracycline Allergy Mild pt does Verified 01/15/21 14:04 not know CIPROFLOXACIN HCL Allergy Mild BAD Uncoded 01/15/21 14:04 SECONDARY REACTION, YEAST INFECT. ECT. CLIDINIUM BROMIDE Allergy Mild RASH Uncoded 01/15/21 14:04 SODIUM PENTATHAL Allergy Mild HYPERTENSIO Uncoded 01/15/21 14:04 N Review of Systems Review of Systems: Narrative: CONSTITUTIONAL: Denies fever, chills, sweats. EYES: Denies visual changes, redness, discharge. ENT: Denies rhinorrhea, congestion, sore throat, otalgia. CARDIOVASCULAR: Denies chest pain, palpitations, edema. RESPIRATORY: Denies dyspnea, wheezing, cough. GASTROINTESTINAL: Denies abdominal pain, nausea, vomiting, diarrhea. GENITOURINARY: Complains of vaginal discomfort, dysuria (burning and urgency). Denies hematuria, abnormal discharge. SKIN: Denies rash or itching. MUSCULOSKELETAL: Denies acute back pain, joint pain, or myalgia. NEUROLOGIC: Denies numbness or focal weakness. PSYCHIATRIC: Denies anxiety or depression. All systems reviewed & are unremarkable except as noted in HPI and below. [facility] Past Medical History Medical History (Updated 01/18/21 @ 14:53 by Vaishali Long) Acute intractable headache Adult hypothyroidism Altered mental status Basal cell carcinoma BMI 23.0-23.9, adult Chronic GERD Cognitive dysfunction Constipation Depressive disorder Dermatitis Dysuria Encounter to establish care Follow up Generalized osteoarthritis Irritable bowel syndrome with constipation Memory loss Myalgia Nausea On snf drug therapy Other and unspecified hyperlipidemia Postmenopausal Raynaud's disease without gangrene Trigger thumb
[2021-01-15 13:52] VITALS: BP 130/71; PULSE 70; RESP 18; TEMP 36.3; O2SAT 99
== END 2021-01-15 14:20 | disposition home or self-care (01) ==
PROVIDERS: Emergency Provider Nurse Practitioner Family; PCP Internal Medicine
DX: R30.0 Dysuria (principal); E78.00 Pure hypercholesterolemia, unspecified; Z85.828 Personal history of other malignant neoplasm of skin; K21.9 Gastro-esophageal reflux disease without esophagitis; M19.90 Unspecified osteoarthritis, unspecified site; E78.5 Hyperlipidemia, unspecified; I73.00 Raynaud's syndrome without gangrene
CPT/HCPCS: 81003; 87086; 99213; G0463

== ENCOUNTER 2021-01-17 11:39 | Emergency (ER) | payer MEDICARE, SELFPAY ==
--- NOTE | 2021-01-17 11:50 | ED.FEMALEGU ---
HPI - Female Genitourinary General Chief complaint: Urogenital-Female Stated complaint: uti Time Seen by Provider: 01/17/21 11:50 Source: patient and RN notes reviewed Mode of arrival: ambulatory Limitations: no limitations History of Present Illness HPI Narrative: 80-year-old female presents with concern for dysuria, discolored/orange urine. She reports she was seen in this clinic 2 days ago for similar symptoms and was given antibiotics for urinary tract infection, patient is an unreliable historian, is unclear if she was taking the medications as directed. She denies abdominal pain, fever, back pain, body aches. She denies nausea, vomiting, diarrhea. Denies rash, vaginal irritation or abnormal vaginal discharge. Reports she has been taking Azo. MD elicited complaint: UTI Related Data Home Medications Medication Instructions Recorded Confirmed amitriptyline 25 mg tablet 25 mg PO DAILY tablet 06/09/19 01/15/21 alprazolam 0.25 mg PO DIRECTED PRN 10/30/19 01/15/21 thiamine HCl (vitamin B1) 100 mg 100 mg PO DAILY 12/27/20 01/15/21 tablet vitamin B complex 1 tablet PO DAILY 12/27/20 01/15/21 Allergies Allergy/AdvReac Type Severity Reaction Status Date / Time Penicillins Allergy Severe Anaphylaxis Verified 01/15/21 14:04 ampicillin Allergy Mild Rash Verified 01/15/21 14:04 cefuroxime Allergy Mild Hives Verified 01/15/21 14:04 chlordiazepoxide Allergy Mild Hives Verified 01/15/21 14:04 ciprofloxacin Allergy Mild Diarrhea Verified 01/15/21 14:04 codeine Allergy Mild pt does Verified 01/15/21 14:04 not know tetracycline Allergy Mild pt does Verified 01/15/21 14:04 not know CIPROFLOXACIN HCL Allergy Mild BAD Uncoded 01/15/21 14:04 SECONDARY REACTION, YEAST INFECT. ECT. CLIDINIUM BROMIDE Allergy Mild RASH Uncoded 01/15/21 14:04 SODIUM PENTATHAL Allergy Mild HYPERTENSIO Uncoded 01/15/21 14:04 N Review of Systems Review of Systems: Narrative: CONSTITUTIONAL: Denies malaise, chills, sweats, or fever. CARDIOVASCULAR: Denies chest pain, palpitations, or edema. RESPIRATORY: Denies cough or dyspnea. GASTROINTESTINAL: Denies abdominal pain, nausea, vomiting, diarrhea, bloody, or mucous stools. GENITOURINARY: Reports dysuria, orange-colored urine. Denies frequency, urgency, or hematuria. SKIN: Denies rash or itching. MUSCULOSKELETAL: Denies back pain or myalgia. All systems reviewed & are unremarkable except as noted in HPI and below PMFSH Past Medical History Medical History (Updated 01/17/21 @ 12:15 by Ritu Avila NP) Acute intractable headache Adult hypothyroidism Altered mental status Basal cell carcinoma BMI 23.0-23.9, adult Chronic GERD Cognitive dysfunction Constipation Depressive disorder Dermatitis Encounter to establish care Follow up Generalized osteoarthritis Irritable bowel syndrome with constipation Memory loss Myalgia Nausea On nursing home drug therapy Other and unspecified hyperlipidemia Postmenopausal Raynaud's disease without gangrene Trigger thumb, left thumb Surgical History Surgical History (Updated 01/15/21 @ 14:01 by WILFRID Aly) History of cholecystectomy 2000 History of colonoscopy History of hysterectomy 1986 History of removal of cyst 1993 History of surgical removal of skin lesion basal cell carcinoma removed from RT nasal ala Hx of sinus surgery 2005 Family History Family History Father Cerebrovascular accident Social History Social History Smoking status: Never smoker Second hand tobacco smoke exposure: No Alcohol intake: current Gender identity (if verbalized by the patient): Female Comments At time of signature, agree with nursing past medical, surgical, social and family history. There is no relevant family history pertinent to the presenting complaint Exam Narrative: E
[2021-01-17 12:02] VITALS: BP 114/88; PULSE 79; RESP 18; TEMP 36.4; O2SAT 97
--- NOTE | 2021-01-17 12:23 | PC.NURSE ---
Unable to verify allergies or medications pt has dementia and unsure of all. Daughter with her and also unsure of allergies and medications.
== END 2021-01-17 12:22 | disposition home or self-care (01) ==
PROVIDERS: Emergency Provider Nurse Practitioner; PCP Internal Medicine
DX: R30.0 Dysuria (principal); E03.9 Hypothyroidism, unspecified; K21.9 Gastro-esophageal reflux disease without esophagitis; M19.90 Unspecified osteoarthritis, unspecified site; E78.2 Mixed hyperlipidemia; I73.00 Raynaud's syndrome without gangrene; Z85.820 Personal history of malignant melanoma of skin; F32.9 Major depressive disorder, single episode, unspecified
CPT/HCPCS: 99211; G0463

== ENCOUNTER 2021-03-27 13:48 | Outpatient (NON) | payer MEDICARE, SELFPAY ==
[2021-03-27 14:34] LABS: Add Urine Microscopic? NO; Appearance Urine Clear (Clear); Bilirubin Urine Negative (Negative); Blood Urine Negative (Negative); Color Urine Colorless (Yellow); Glucose Urine UA Negative (Negative); Ketones Urine Negative (Negative); Leukocyte Esterase Ur Negative LEU/UL (Negative); Nitrate Urine Negative (Negative); Protein Urine Negative (Negative); Urobilinogen Urine Negative mg/dL (<2.0)
[2021-03-27 15:31] LABS: Specific Grav Ur 1.004 (1.001-1.035)
== END 2021-03-27 13:49 | disposition home or self-care (01) ==
LOC: ANHLAB 13:49
PROVIDERS: PCP Internal Medicine; Visit Provider Internal Medicine
DX: R30.0 Dysuria (principal)
CPT/HCPCS: 81003

== ENCOUNTER 2021-11-30 10:10 | Outpatient (CLI) | payer MEDICARE, SELFPAY ==
--- NOTE | ~2021-11-30 | US_ITS ---
EXAMINATION: US abdomen complete DATE: 11/30/2021 10:45 INDICATION: Nausea TECHNIQUE: Multiple grayscale and Doppler ultrasound images of the abdomen were obtained. COMPARISON: CT, 03/19/2020 FINDINGS: Bowel gas obscures visualization of the pancreas. The visualized portions of the pancreas a re unremarkable. The liver is normal with normal echogenicity and echotexture. No surface nodularity. Normal hepatopetal flow in the main portal vein. The gallbladder is surgically absent. The normal co mmon bile duct measures 4 mm. There was no sonographic Nathan sign. The visualized portions of the ao rta and inferior vena cava are normal. The right kidney measures 9.6 x 3.8 x 4.3 cm. The left kidney measures 7.9 x 3.9 x 5.4 cm. The kidney s demonstrate normal parenchymal echogenicity. There is no hydronephrosis. The spleen is normal in ap pearance and measures 8.8 cm. IMPRESSION: 1. No sonographic correlate for the patient's symptoms. Reviewed, dictated and finalized at location F.
== END 2021-11-30 10:11 | disposition home or self-care (01) ==
LOC: ANHIMG 10:14
PROVIDERS: PCP Internal Medicine; Visit Provider Internal Medicine
DX: R10.9 Unspecified abdominal pain (principal); R11.0 Nausea
CPT/HCPCS: 76700

== ENCOUNTER 2022-03-13 13:24 | Outpatient (CLI) | payer MEDICARE, SELFPAY ==
[2022-03-13 14:15] LABS: Basophils Percent Auto 0.5 % (0.2-1.2); Eosinophils Absolute Auto 0.2 K/mm3 (0-0.3); Eosinophils Percent Auto 2.8 % (0-4.4); Hematocrit 38.9 % (37.0-47.0); Hemoglobin 12.9 g/dL (12.0-15.0); Immature Granulocyte Absolute 0.02 K/mm3 (0.00-0.031); Immature Granulocyte Percent A 0.3 % (0-0.5); Lymphocytes Absolute Auto 2.31 K/mm3 (0.9-3.2); Lymphocytes Percent Auto 31.2 % (18.3-44.2); Mean Corpuscular HGB Conc 33.2 g/dl (32-36); Mean Corpuscular Hemoglobin 31.8 pg (26-34); Mean Corpuscular Volume 95.8 fl (80-100); Mean Platelet Volume 9.3 fl (7.4-10.4); Monocytes Absolute Auto 0.6 K/mm3 (0.1-0.6); Monocytes Percent Auto 8.4 % (2.6-8.5); Neutrophils Absolute Auto 4.2 K/mm3 (1.3-6.7); Neutrophils Percent Auto 56.8 % (45.5-73.1); Platelet Count Result 280 k/mm3 (150-375); Red Blood Count 4.06 M/mm3 (4.2-5.4); Red Cell Distribution Width 13.7 % (11.5-14.5); White Blood Count 7.4 K/mm3 (4.5-10.0)
[2022-03-13 14:32] LABS: Alanine Aminotransferase 22 U/L (6-35); Alkaline Phosphatase 94 U/L (38-126); Anion Gap 9 mmol/L (8-16); Aspartate Amino Transferase 31 U/L (14-36); Bilirubin,Total 0.8 mg/dL (0.2-1.3); Blood Urea Nitrogen 18 mg/dL (7-17); Calcium 9.6 mg/dL (8.4-10.2); Carbon Dioxide 27 mmol/L (22-30); Chloride 104 mmol/L (98-107); Cholesterol 144 mg/dL (0-200); Estimated Glomerular Filt Rate 60; Glucose 86 mg/dL (65-110); HDL Direct 48 mg/dL; Potassium 4.3 mmol/L (3.4-5.0); Sodium 140 mmol/L (137-145); Triglycerides 130 mg/dL (<150)
[2022-03-13 14:41] LABS: Free T4 Free Thyroxine 1.35 ng/mL (0.78-2.19); Vitamin D 25 Hydroxy 35.9 ng/mL
[2022-03-13 14:43] LABS: LDL Cholesterol Direct 56 mg/dL
[2022-03-13 15:48] LABS: Folic Acid > 20.0 ng/mL (2.76->20)
[2022-03-16 09:45] LABS: Vitamin B1 45 nmol/L (8-30)
[2022-03-18 13:27] LABS: Vitamin B6 24.7 ng/mL (2.1-21.7)
[2022-03-20 18:24] LABS: Vitamin B2 44.5 nmol/L (6.2-39.0)
== END 2022-03-13 13:25 | disposition home or self-care (01) ==
LOC: ANHLAB 13:30
PROVIDERS: PCP Internal Medicine; Visit Provider Internal Medicine
DX: E53.9 Vitamin B deficiency, unspecified (principal); E78.5 Hyperlipidemia, unspecified; Z79.899 Other long term (current) drug therapy; E03.9 Hypothyroidism, unspecified; E55.9 Vitamin D deficiency, unspecified; E51.9 Thiamine deficiency, unspecified; E53.8 Deficiency of other specified B group vitamins
CPT/HCPCS: 36415; 80053; 80061; 82306; 82607; 82746; 84207; 84252; 84425; 84439; 84443; 85025

== ENCOUNTER 2023-07-19 23:25 | Observation (INO) | payer MEDICARE, SELFPAY ==
--- NOTE | ~2023-07-19 | MR_ITS ---
EXAMINATION: MR lumbar spine wo/w con DATE: 07/20/2023 12:25 INDICATION: fall, urine retention, T11 fracture . TECHNIQUE: Magnetic resonance imaging (MRI) of the lumbar spine was performed with 15 mL MultiHance i ntravenous contrast. Sequences included sagittal T2-weighted FSE, sagittal T2-weighted FS FSE, sagitt al T1-weighted FSE, and axial T2-weighted FSE. Postcontrast sequences included axial and sagittal T1 FSE FS. COMPARISON: CT abdomen pelvis 07/20/2023 FINDINGS: Multiple sequences limited by motion artifact. The last fully formed and hydrated disc is designated L5-S1. Moderate burst fracture at T11 with minimal 3 mm retropulsion. There is low T1 signal in the T 11 vertebrae with accompanying enhancement likely related to the fracture. Otherwise, the marrow sign al is benign and homogenous. Conus terminates at L1-L2. Multilevel loss of disc height and hydration. The following disc levels are specifically discussed: T10-T11: The disc does not extend beyond the endplate margin. There is mild facet joint osteoarthriti s. There is no neural foraminal stenosis. Linear enhancement along the posterior aspect of the T11 ve rtebral body, likely related to the burst fracture at this level. There is mild central canal stenosi s. T11-T12: The disc does not extend beyond the endplate margin. There is mild facet joint osteoarthriti s. There is no neural foraminal stenosis. There is no central canal stenosis. T12-L1: The disc does not extend beyond the endplate margin. There is mild facet joint osteoarthritis . There is no neural foraminal stenosis. There is no central canal stenosis. L1-L2: Mild diffuse bulge. There is mild facet joint osteoarthritis. There is mild bilateral neural f oraminal stenosis. There is no central canal stenosis. L2-L3: Moderate diffuse bulge with a 2 mm superimposed right subarticular protrusion. There is modera te bilateral facet joint osteoarthritis. There is mild bilateral neural foraminal stenosis. There is mild central canal stenosis. L3-L4: Moderate diffuse bulge. There is moderate bilateral facet joint osteoarthritis. There is mild bilateral neural foraminal stenosis. There is mild central canal stenosis. L4-L5: Mild diffuse bulge There is moderate bilateral facet joint osteoarthritis. There is mild bilat eral neural foraminal stenosis. There is mild central canal stenosis. L5-S1: Mild diffuse bulge. There is mild facet joint osteoarthritis. There is no neural foraminal anamika nosis. There is mild central canal stenosis. IMPRESSION: Moderate T11 burst fracture with minimal 3 mm retropulsion. Multilevel mild and moderate degenerative disc disease and facet arthropathy. Reviewed, dictated and finalized at location K. ENT ASSISTANT
--- NOTE | ~2023-07-19 | XR_ITS ---
XR chest 1V portable DATE: 07/20/2023 03:46 INDICATION: Cough TECHNIQUE: Portable AP chest on 07/20/2023 at 0332 hours COMPARISON: None FINDINGS: Heart size is within normal range. Is aortic calcification and unfolding. No hilar or media stinal enlargement is evident. Moderate elevation of right diaphragm. Mild infiltrate or atelectasis is suggested in the right lower lung. The lungs otherwise appear clear. No pleural effusion or pneumothorax. Pulmonary vascularity appears mildly prominent. Diffuse osteopenia. Minimal thoracic scoliosis. IMPRESSION: Moderate elevation right diaphragm Mild infiltrate or atelectasis, right lower lung Aortic atherosclerosis Osteopenia Reviewed, dictated and finalized at location A. [employer]
--- NOTE | ~2023-07-19 | CT_ITS ---
EXAMINATION: CT brain wo con DATE: 07/20/2023 01:12 INDICATION: Altered mental status TECHNIQUE: Computed tomography (CT) of the head was performed without intravenous contrast. The mA wa s adjusted according to patient size. Iterative reconstruction technique was employed. Exam dose: 11 35.00 mGy-cm total exam DLP. COMPARISON: 12/20/2020 CT brain FINDINGS: Examination is limited due to motion artifact. There is prominent central and cortical cerebral volume loss, mild cerebellar volume loss. No acute intracranial finding is noted. No intracranial mass lesion or hemorrhage, midline shift or m ass effect or subdural or epidural hematoma. There is prominent mucoperiosteal thickening of the maxillary sinuses, patchy soft tissue thickening the ethmoid air cells and mild soft tissue thickening of the sphenoid sinuses. The mastoid air cells are normally developed and aerated. No fracture or bone destruction of the cranial vault. IMPRESSION: Limited examination due to motion artifact; no skull fracture or acute intracranial find ing is detected Reviewed, dictated and finalized at Location A. Reviewed, dictated and finalized at location A. PM IMPRESSION: Limited examination due to motion artifact; no skull fracture or a cute intracranial finding is detected
--- NOTE | ~2023-07-19 | XR_ITS ---
XR hip BI 2V w AP pelvis DATE: 07/20/2023 12:40 INDICATION: Fall. TECHNIQUE: AP pelvis. AP and lateral views of each hip. COMPARISON: None FINDINGS: The pubic symphysis and sacroiliac joints are intact. No pelvic fracture or bone destructio n is detected. No fracture, dislocation, avascular necrosis or bone destruction of either hip is evident. There is m ild osteoarthritis at the hip joint spaces. IMPRESSION: No pelvic or left or right hip fracture or dislocation Reviewed, dictated and finalized at location A. TH OFFICER
--- NOTE | ~2023-07-19 | CT_ITS ---
EXAMINATION: CT cervical spine wo con DATE: 07/20/2023 12:32 INDICATION: fall TECHNIQUE: Computed tomography (CT) of the cervical spine was performed without intravenous contrast. Automated exposure control and iterative reconstruction technique were employed. The dose-length pro duct was 225.77 mGy-cm. COMPARISON: 10/16/2016. FINDINGS: Vertebral Body Alignment: Intact. Craniocervical and atlantoaxial alignment: Moderate degenerative change. Alignment intact. Osseous structures/fracture: No evidence of a lytic or blastic process in the visualized spine. No e vidence of acute fracture. Cervical soft tissues: The paraspinal soft tissues planes are maintained. Degenerative changes: Mild degenerative changes present, without severe neural foraminal or central c anal narrowing. IMPRESSION: No acute fracture or traumatic malalignment in the cervical spine. Reviewed, dictated and finalized at location K. RMAN CEO
--- NOTE | ~2023-07-19 | CT_ITS ---
EXAMINATION: CT abdomen pelvis w con DATE: 07/20/2023 02:29 INDICATION: Abdominal pain, nausea and vomiting TECHNIQUE: Computed tomography (CT) of the abdomen and pelvis was performed without intravenous contr ast. Automated exposure control and iterative reconstruction technique were employed. Exam dose: 104 7.14 mGy-cm total exam DLP. COMPARISON: 12/17/2021 complete abdominal ultrasound examination 03/25/2020 CT abdomen pelvis FINDINGS: There is discoid atelectasis and/or scarring and minimal dependent atelectasis in the lower lobes. No pericardial or pleural effusion. Status post cholecystectomy. No bile duct or pancreatic duct dilatation. No hepatic, splenic, pancreatic, and adrenal or renal space-occupying mass lesion is evident. No urin brennen tract calculus or hydroureteronephrosis. The urinary bladder is unremarkable. Status post hysterectomy. Approximately 3.7 cm sliding hiatal hernia. There is prominent fluid within the stomach, multiple nondilated fluid containing small bowel segment s and right colonic liquid stool. Consider enterocolitis. There is diverticulosis of the left colon; no CT evidence of diverticulitis. No bowel obstruction, danielle wel wall thickening, pneumatosis or intraperitoneal free air is detected. As atherosclerotic calcification but normal caliber of the abdominal aorta. No intraperitoneal or ret roperitoneal or pelvic mass lesion or adenopathy or ascites. Moderately prominent T11 burst fracture is noted. Osteopenia. IMPRESSION: Moderately prominent T11 burst fracture Status post cholecystectomy Prominent fluid within the stomach and multiple nondilated fluid containing small bowel segments and right colon liquid stool; consider enterocolitis Diverticulosis of left colon; no evidence of diverticulitis Reviewed, dictated and finalized at Location A. Reviewed, dictated and finalized at location A. ORS MOTIVATIONAL IMPRESSION: Moderately prominent T11 burst fracture Status post cholecystectomy Prominent fluid within the stomach and multiple nondilated fluid containing sma ll bowel segments and right colon liquid stool; consider enterocolitis Diverticulosis of left colon; no evidence of diverticulitis
[2023-07-19 23:35] VITALS: BP 139/61; PULSE 93; RESP 17; TEMP 36.6; O2SAT 98
[2023-07-20] VITALS (36 sets, daily range): BP systolic 101–138; BP diastolic 47–85; PULSE 64–102; RESP 16–22; TEMP 36.6–36.9; O2SAT 94–100; BMI 24.5
--- NOTE | 2023-07-20 00:30 | PC.NURSE ---
Patient was attempting to get out of the w/c in waiting room, this RN went to speak to patient and she stated she had a bowel movement. Patient was brought to the triage bay and cleaned up and brief changed with assistance. Patient tolerated well. Gerri Steady was used.
--- NOTE | 2023-07-20 00:43 | ECG_ITS ---
Measurements Intervals [facility] Rate: 90 P: 57 TX: 170 QRS: -41 QRSD: 126 T: 101 QT: 405 QTc: 496 Interpretive Statements SINUS RHYTHM FREQUENT ATRIAL PREMATURE COMPLEXES LEFT AXIS DEVIATION LEFT BUNDLE BRANCH BLOCK BASELINE WANDER- I, AVR, AVL, AVF, V5-V6 ABNORMAL ECG COMPARED TO ECG 12/20/2020 14:06:36 LEFT-AXIS DEVIATION NOW PRESENT LEFT BUNDLE BRANCH BLOCK Electronically Signed On 07-20-2023 8:10:02 FURNACE INSTALLER HELPER by Toni Sharif D.O.
[2023-07-20 00:53] LABS: Basophils Absolute Auto 0.1 K/mm3 (0.0-0.1); Basophils Percent Auto 0.3 % (0.2-1.2); Eosinophils Percent Auto 0.2 % (0-4.4); Hematocrit 40.6 % (37.0-47.0); Hemoglobin 13.6 g/dL (12.0-15.0); Immature Granulocyte Percent A 0.7 % (0-0.5); Lymphocytes Absolute Auto 1.65 K/mm3 (0.9-3.2); Lymphocytes Percent Auto 11.5 % (18.3-44.2); Mean Corpuscular HGB Conc 33.5 g/dl (32-36); Mean Corpuscular Hemoglobin 31.3 pg (26-34); Mean Corpuscular Volume 93.5 fl (80-100); Mean Platelet Volume 9.1 fl (7.4-10.4); Monocytes Percent Auto 6.9 % (2.6-8.5); Neutrophils Absolute Auto 11.5 K/mm3 (1.3-6.7); Neutrophils Percent Auto 80.4 % (45.5-73.1); Platelet Count Result 351 k/mm3 (150-375); Red Blood Count 4.34 M/mm3 (4.2-5.4); Red Cell Distribution Width 13.4 % (11.5-14.5); White Blood Count 14.3 K/mm3 (4.5-10.0)
[2023-07-20 01:01] LABS: Prothrombin Time 13.6 Seconds (11.1-14.7)
[2023-07-20 01:02] LABS: Partial Thromboplastin Time 31.1 SECONDS (22.3-36.8)
[2023-07-20 01:08] LABS: Lactic Acid Reflex 2.3 mmol/L (0.7-2.0)
[2023-07-20 01:10] LABS: Alanine Aminotransferase 20 U/L (6-35); Albumin Level 3.8 g/dL (3.5-5.1); Alkaline Phosphatase 138 U/L (38-126); Anion Gap 10 mmol/L (8-16); Aspartate Amino Transferase 27 U/L (14-36); Bilirubin,Total 0.9 mg/dL (0.2-1.3); Blood Urea Nitrogen 13 mg/dL (7-17); Calcium 8.9 mg/dL (8.4-10.2); Carbon Dioxide 22 mmol/L (22-30); Chloride 94 mmol/L (98-107); Estimated Glomerular Filt Rate > 60; Glucose 143 mg/dL (65-110); Lipase 81 U/L (23-300); Magnesium 1.7 mg/dL (1.6-2.3); Potassium 3.9 mmol/L (3.4-5.0); Sodium 126 mmol/L (137-145)
[2023-07-20 01:27] LABS: Procalcitonin 0.1 ng/mL
[2023-07-20] MEDS: ONDANSETRON INJ 4 MG/2 ML VIAL IV PUSH (01:44)
[2023-07-20] MEDS: SODIUM CHLORIDE 0.9% IV 1,000 ML 999 ML IV CONT ×2 (01:50)
[2023-07-20 01:54] LABS: Troponin I 0.036 ng/mL (0.000-0.034)
[2023-07-20 02:23] LABS: Appearance Urine Clear (Clear); Bilirubin Urine Negative (Negative); Blood Urine Negative (Negative); Color Urine Yellow (Yellow); Glucose Urine UA Negative (Negative); Ketones Urine Negative (Negative); Leukocyte Esterase Ur Negative LEU/UL (Negative); Nitrate Urine Negative (Negative); Protein Urine Negative (Negative); Specific Grav Ur 1.003 (1.001-1.035); Urobilinogen Urine 0.2 mg/dL (<2.0); pH Urine 6.5 (5.0-9.0)
[2023-07-20 02:36] LABS: Add Urine Microscopic? NO
[2023-07-20 02:56] LABS: Influenza A QL RT-PCR Negative (Negative); Influenza B QL RT-PCR Negative (Negative); RSV RNA, RT-PCR Negative (Negative); SARS-CoV-2 RNA PCR Negative (Negative)
--- NOTE | 2023-07-20 03:12 | ED.GENADULT ---
HPI - General Adult General Chief complaint: Unspecified Stated complaint: stubborn and sat on floor. Time Seen by Provider: 07/20/23 00:37 History of Present Illness HPI narrative: patient is 82-year-old female who presents emergency department chief complaint generalized weakness. Per the family the patient sat down on the floor had a bowel movement on herself and urinated on herself and would not get they called EMS in for lift assist and brought the patient to the emergency department for evaluation the patient has some history of confusion and is normally pleasantly confused the patient will state that she feels fine but will not answer any questions. Related Data Home Medications Medication Instructions Recorded Confirmed pyridoxine (vitamin B6) 100 mg 50 mg PO DAILY 11/06/22 06/17/23 tablet Allergies Allergy/AdvReac Type Severity Reaction Status Date / Time Penicillins Allergy Severe Anaphylaxis Verified 06/17/23 10:37 ampicillin Allergy Mild Rash Verified 06/17/23 10:37 cefuroxime Allergy Mild Hives Verified 06/17/23 10:37 chlordiazepoxide Allergy Mild Hives Verified 06/17/23 10:37 ciprofloxacin Allergy Mild Diarrhea Verified 06/17/23 10:37 codeine Allergy Mild pt does Verified 06/17/23 10:37 not know tetracycline Allergy Mild pt does Verified 06/17/23 10:37 not know CIPROFLOXACIN HCL Allergy Mild BAD Uncoded 06/17/23 10:37 SECONDARY REACTION, YEAST INFECT. ECT. CLIDINIUM BROMIDE Allergy Mild RASH Uncoded 06/17/23 10:37 SODIUM PENTATHAL Allergy Mild HYPERTENSIO Uncoded 06/17/23 10:37 N Review of Systems Review of Systems: A 10 system review of systems was completed on the patient and is negative except for what is stated in the HPI. Nursing and ancillary documentation was reviewed. [facility] Past Medical History Medical History Abdominal pain Acute intractable headache Adult hypothyroidism Altered mental status Alzheimers disease Anxiety Basal cell carcinoma BMI 23.0-23.9, adult BMI 25.0-25.9,adult BMI 26.0-26.9,adult BMI 27.0-27.9,adult BMI 28.0-28.9,adult Bruxism Chronic GERD Cognitive dysfunction Constipation Depressive disorder Dermatitis Dysuria Encounter for routine adult health examination with abnormal findings Encounter to establish care Epigastric pain Follow up Foot pain, bilateral Generalized osteoarthritis Irritable bowel syndrome with constipation Memory loss Myalgia Nausea On retirement drug therapy Other and unspecified hyperlipidemia Postmenopausal Raynaud's disease without gangrene Trigger thumb, left thumb Vertigo Vitamin B1 deficiency Vitamin B12 deficiency Vitamin D deficiency Surgical History Surgical History History of cholecystectomy 2000 History of colonoscopy History of hysterectomy 1987 History of removal of cyst 1994 History of surgical removal of skin lesion basal cell carcinoma removed from RT nasal ala Hx of sinus surgery 2005 Family History Family History Father Cerebrovascular accident Social History Social History Smoking status: Never smoker Second hand tobacco smoke exposure: No Alcohol intake: current Lack of Transportation: No Lack of Food: Never True Current Housing: I Have Housing Concerned About Future Housing: No Difficulty Paying Gas/Electric Bills: No Difficulty Paying for Meds: No Currently Unemployed: No Difficulty w/ Childcare or Family Care: No Living arrangements: other Occupation/Education: retired Gender identity (if verbalized by the patient): Female Exam Narrative: GENERAL: Well-appearing, well-nourished, and in no acute distress. HEAD: Normocephalic, atraumatic. EYES: PERRLA and EOMI.
[2023-07-20 03:50] LABS: Reflex Lactic Acid Yes or No Add Lactic
[2023-07-20 04:49] LABS: Anion Gap 6 mmol/L (8-16); Blood Urea Nitrogen 13 mg/dL (7-17); Calcium 8.1 mg/dL (8.4-10.2); Carbon Dioxide 23 mmol/L (22-30); Chloride 107 mmol/L (98-107); Estimated Glomerular Filt Rate > 60; Glucose 115 mg/dL (65-110); Potassium 3.8 mmol/L (3.4-5.0); Sodium 136 mmol/L (137-145)
[2023-07-20 04:50] LABS: Lactic Acid 1.5 mmol/L (0.7-2.0)
[2023-07-20 05:30] LABS: Troponin I 0.039 ng/mL (0.000-0.034)
--- NOTE | 2023-07-20 06:20 | PC.NURSE ---
324 mg ASA not given. Patient began yelling and smacked this RN's hand.
--- NOTE | 2023-07-20 06:53 | PC.NURSE ---
Called MATEO (daughter) Awilda at [phone] to give her an update that patient will be staying in the hospital. Awilda states she would like an update on the patient's room number when she goes upstairs.
[2023-07-20 07:35] LABS: Troponin I 0.041 ng/mL (0.000-0.034)
--- NOTE | 2023-07-20 08:22 | PC.NURSE ---
Discussed patient with Dr Velázquez and reviewed troponins. Dr Velázquez orders downgrade to medical with tele.
[2023-07-20] MEDS: SODIUM CHLORIDE 0.9% IV 1,000 ML 125 ML IV CONT (08:23)
--- NOTE | 2023-07-20 08:41 | PM.IMHP ---
H&P: HPI History of Present Illness Date/Time: 07/20/23 08:41 Chief Complaint: Generalized weakness Narrative: 82yo female with dementia, depression and hypothyroidism who is brought in to the ED for generalized weakness. Patient is alert but confused and unable to provide history. I called the phone number listed in the chart but there was no answer and a voicemail was not set up to leave a message. As such, the majority history is obtained from the chart. According to the ED note, patient sat down on the floor and had a bowel movement on herself and voided on herself. They called EMS for lift assist but ultimately brought the patient to the emergency room for evaluation. Per EMS notes, patient's vital signs were stable. They arrived to find the patient sitting upright on the kitchen floor with family members present. Family members stated the patient sat down on the floor and would not help herself up. Patient was conscious and alert but was not communicating with family or EMS. Patient did complain of pain but would not provide further details. Patient did have stool incontinence noted. EMS did help the patient to a standing position but she would not stand erect and stood with her knees bent. She had poor, unsteady gait and was assisted to a chair in the living room. Patient was transported to the ED for further evaluation. In the ED, patient's vital signs were normal. White count was 14K, sodium 126, glucose 143, lactic acid 2.3 (repeat normal), and troponin mildly elevated at 0.041. EKG showed normal sinus rhythm with PACs, LAD and left BBB. The BBB seems to be new from 2020. UA was negative. Influenza, RSV and COVID PCR was negative. Procalcitonin 0.1. Head CT was limited due to motion but no acute findings overall. Chest x-ray showed moderate elevation right hemidiaphragm with mild infiltrate or atelectasis right lower lung. CT of the abdomen and pelvis shows atelectasis or scarring in the lower lobes, moderately prominent T11 burst fracture, prominent fluid within the stomach and multiple nondilated fluid containing small bowel and right colon consistent with enterocolitis. Patient was given Zofran and IV fluids. She was admitted for further care. Noted that she had >800mL in her bladder despite recent voiding so Serna placed in ED. Review of Systems Review of Systems: ROS unobtainable: Yes unobtainable due to mental status [facility] Past Medical History Medical History (Updated 07/20/23 @ 09:03 by Ayo Carrillo MD) Abdominal pain Acute intractable headache Adult hypothyroidism Altered mental status Alzheimers disease Anxiety Basal cell carcinoma BMI 23.0-23.9, adult BMI 25.0-25.9,adult BMI 26.0-26.9,adult BMI 27.0-27.9,adult BMI 28.0-28.9,adult Bruxism Chronic GERD Cognitive dysfunction Constipation Depressive disorder Dermatitis Dysuria Encounter for routine adult health examination with abnormal findings Encounter to establish care Epigastric pain Follow up Foot pain, bilateral Generalized osteoarthritis Irritable bowel syndrome with constipation Memory loss Myalgia Nausea On termite treater helper drug therapy Other and unspecified hyperlipidemia Postmenopausal Raynaud's disease without gangrene Trigger thumb, left thumb Vertigo Vitamin B1 deficiency Vitamin B12 deficiency Vitamin D deficiency Surgical History Surgical History History of cholecystectomy 2000 History of colonoscopy History of hysterectomy 1986 History of removal of cyst 1993 History of surgical removal of skin lesion basal cell carcinoma removed from RT nasal ala Hx of sinus surgery 2005 Family History Family History Father Cerebrovascular accident Social History Social History Smoking status: Never smoker Second hand tobacco smoke exposure: No Al
[2023-07-20] MEDS: ENOXAPARIN 40 MG/0.4 ML SYRINGE SUB-Q (09:35)
[2023-07-20] MEDS: DEXTROSE 5% 1,000 ML 1,000 ML 100 ML IV CONT ×2 (09:36→20:34)
--- NOTE | 2023-07-20 10:56 | ADMGEN ---
This patient, Rima Prescott, was admitted to [facility] Surg Room 325-01. Patient/family oriented to hospital policies and general routines including ID bracelet, bed and alarms, visiting hours, pain management, procedures, bathroom and other care routines, personal items, smoking policy, room service/diet, and visiting hours. Information on how to activate the Rapid Response Team has been discussed. Patient/Family are encouraged to report perceived risks to care and to ask questions if they do not understand what they are told or what they should do. Nicolle BURNETT got report from nurse in ER.
[2023-07-20 11:19] LABS: Sodium 139 mmol/L (137-145)
[2023-07-20] MEDS: HALOPERIDOL 0.5 MG TABLET BY MOUTH (16:33)
[2023-07-20 17:45] LABS: Sodium 137 mmol/L (137-145)
[2023-07-20] MEDS: busPIRone HCL 5 MG TABLET 15 MG BY MOUTH (20:18)
[2023-07-20] MEDS: MEMANTINE 10 MG TABLET BY MOUTH (20:18)
[2023-07-20] MEDS: DONEPEZIL HCL 10 MG TABLET BY MOUTH (20:18)
[2023-07-20] MEDS: FAMOTIDINE 20 MG TABLET BY MOUTH (20:18)
[2023-07-20 23:24] LABS: Sodium 137 mmol/L (137-145)
[2023-07-21] VITALS (9 sets, daily range): BP systolic 131–141; BP diastolic 54–60; PULSE 53–79; RESP 16–18; TEMP 36.3–36.6; O2SAT 96–98
--- NOTE | 2023-07-21 | ECHO_ITS ---
Patient Info Name: Rima Prescott Age: 82 years : 1940 Gender: Female Ht: 67 in Wt: 169 lbs BSA: 1.92 m2 HR: 71 bpm BP: 136 / 60 mmHg Technical Quality: Fair Exam Date: 07/21/2023 1:01 PM Exam Location: Echo Lab Exam Room: 325 Patient Status: Inpatient Admit Date: 07/20/2023 Staff Ordering Physician: Ayo Carrillo MD Last Code Striper: Anne Marie Jimenez RDCS Attending Provider: Ruby Velázquez DO Exam Type: CA echo doppler color flow Study Info Indications - elevated troponins Complete two-dimensional, color flow and Doppler transthoracic echocardiogram is performed. Summary 1. Complete two-dimensional, color flow and Doppler transthoracic echocardiogram is performed. 2. Left ventricular chamber dimension is normal. 3. Left ventricular systolic function is normal, estimated at 65-70%. 4. The left ventricular diastolic function is grade I diastolic dysfunction. 5. Right ventricular systolic function is normal. 6. There is trace mitral valve regurgitation. 7. There is trace tricuspid valve regurgitation. Left Ventricle Left ventricular chamber dimension is normal. Left ventricular systolic function is normal, estimated at 65-70%. There is no increased left ventricular wall thickness. The left ventricular diastolic function is grade I diastolic dysfunction. Right Ventricle Right ventricular chamber dimension is normal. Right ventricular systolic function is normal. Left Atria Left atrial chamber dimension is normal. Right Atria Right atrial chamber dimension is normal. Atrial Septum Intact interatrial septum visualized by color flow imaging. Aortic Valve The aortic valve is probable trileaflet. There is no aortic valve stenosis. There is no aortic valve regurgitation. There is mild aortic valve calcification. Pulmonic Valve The pulmonic valve is not well visualized. Mitral Valve There is trace mitral valve regurgitation. The mitral valve annulus is mildly calcified. Tricuspid Valve There is trace tricuspid valve regurgitation. Pericardium/Pleural The pericardium appears epicardial fat pad. There is no pericardial effusion. Inferior Vena Cava Normal inferior vena cava with >50% collapse upon inspiration consistent with normal right atrial pressure, 3 mmHg. Aorta The aortic root size at the sinus of Valsalva is normal. Left Ventricular Outflow Tract Name Value Normal LVOT 2D LVOT Diameter 2.0 cm LVOT Doppler LVOT Peak Gradient 4 mmHg LVOT Mean Gradient 3 mmHg LVOT VTI 22 cm LVOT VTI/AV VTI Ratio 0.9 LVOT Stroke Volume 66 ml LVOT CO 14.7 l/min LVOT CI 7.7 l/min/m2 Pulmonic Valve Name Value Normal RVOT Doppler RVOT Peak Gradient 3 mmHg PV Doppler
[2023-07-21 06:03] LABS: Basophils Percent Auto 0.6 % (0.2-1.2); Eosinophils Absolute Auto 0.2 K/mm3 (0-0.3); Eosinophils Percent Auto 2.8 % (0-4.4); Hematocrit 37.1 % (37.0-47.0); Hemoglobin 11.9 g/dL (12.0-15.0); Immature Granulocyte Absolute 0.02 K/mm3 (0.00-0.031); Immature Granulocyte Percent A 0.3 % (0-0.5); Lymphocytes Absolute Auto 1.81 K/mm3 (0.9-3.2); Lymphocytes Percent Auto 26.4 % (18.3-44.2); Mean Corpuscular HGB Conc 32.1 g/dl (32-36); Mean Corpuscular Hemoglobin 31.3 pg (26-34); Mean Corpuscular Volume 97.6 fl (80-100); Mean Platelet Volume 9.4 fl (7.4-10.4); Monocytes Absolute Auto 0.7 K/mm3 (0.1-0.6); Monocytes Percent Auto 10.1 % (2.6-8.5); Neutrophils Absolute Auto 4.1 K/mm3 (1.3-6.7); Neutrophils Percent Auto 59.8 % (45.5-73.1); Platelet Count Result 291 k/mm3 (150-375); Red Cell Distribution Width 14.4 % (11.5-14.5); White Blood Count 6.9 K/mm3 (4.5-10.0)
[2023-07-21 06:20] LABS: Anion Gap 4 mmol/L (8-16); Blood Urea Nitrogen 5 mg/dL (7-17); Calcium 8.7 mg/dL (8.4-10.2); Carbon Dioxide 25 mmol/L (22-30); Chloride 108 mmol/L (98-107); Estimated CRCL calculation 53 ml/min; Estimated Glomerular Filt Rate > 60; Glucose 109 mg/dL (65-110); Potassium 3.8 mmol/L (3.4-5.0); Sodium 137 mmol/L (137-145)
[2023-07-21] MEDS: DEXTROSE 5% 1,000 ML 1,000 ML 100 ML IV CONT (06:37)
[2023-07-21] MEDS: LEVOTHYROXINE SODIUM 75 MCG TABLET BY MOUTH (06:37)
[2023-07-21] MEDS: MEMANTINE 10 MG TABLET BY MOUTH ×2 (08:54→20:17)
[2023-07-21] MEDS: ASPIRIN 81 MG CHEWABLE TABLET PO (08:54)
[2023-07-21] MEDS: FAMOTIDINE 20 MG TABLET BY MOUTH ×2 (08:54→20:17)
[2023-07-21] MEDS: SERTRALINE HCL 50 MG TABLET BY MOUTH (08:54)
[2023-07-21] MEDS: busPIRone HCL 5 MG TABLET 15 MG BY MOUTH ×2 (08:54→20:17)
[2023-07-21] MEDS: HALOPERIDOL 0.5 MG TABLET BY MOUTH ×2 (08:54→17:16)
[2023-07-21] MEDS: ROSUVASTATIN 10 MG TABLET BY MOUTH (08:55)
[2023-07-21] MEDS: PYRIDOXINE HCL 50 MG TABLET PO (08:55)
[2023-07-21] MEDS: ENOXAPARIN 40 MG/0.4 ML SYRINGE SUB-Q (08:59)
--- NOTE | 2023-07-21 12:33 | PC.NURSE ---
updated daughter Awilda at 1230 by telephone.
--- NOTE | 2023-07-21 13:43 | PM.IMPN ---
Progress Note: A&P Assessment and Plan (1) Generalized weakness: Code(s): R53.1 - Weakness Status: Acute (2) Elevated troponin: Code(s): R79.89 - Other specified abnormal findings of blood chemistry Status: Acute (3) Acute hyponatremia: Code(s): E87.1 - Hypo-osmolality and hyponatremia Status: Acute (4) Enterocolitis: Code(s): K52.9 - Noninfective gastroenteritis and colitis, unspecified Status: Acute (5) Elevated lactic acid level: Code(s): R79.89 - Other specified abnormal findings of blood chemistry Status: Acute (6) Stable burst fracture of T11 vertebra: Code(s): S22.081A - Stable burst fracture of T11-T12 vertebra, initial encounter for closed fracture Status: Acute (7) Urine retention: Code(s): R33.9 - Retention of urine, unspecified Status: Acute (8) Adult hypothyroidism: Code(s): E03.9 - Hypothyroidism, unspecified Status: Acute (9) Dementia: Code(s): F03.90 - Unspecified dementia, unspecified severity, without behavioral disturbance, psychotic disturbance, mood disturbance, and anxiety Status: Acute (10) Depressive disorder: Code(s): F32.9 - Major depressive disorder, single episode, unspecified Status: Acute Plan Patient was admitted to IMU. Unclear if patient fell on the floor or sat down since no family to corroborate events leading up to her admission. She has a T11 burst fracture which could be new and explain her poorly defined complaints of pain. She may have fallen due to weakness related to her enterocolitis which is probably from viral gastroenteritis. Lactic acid mildly elevated and now improved with IV fluids. Probably underlying dehydration with the hyponatremia. Will need to change IV fluids to slow the sodium rise. Elevated Troponin noted and flat. Etiology unclear unless she was HoTN from dehydration but no evidence of this. Not tachycardic or hypoxic to suggest PE. Her EKG does show 'new' Lt BBB but when compared to 2020 so unclear how now this is. Check Echo. Add ASA. Urine retention may be related to cord compression especially her weak gait but felt less likely given the good tone in her legs. Will need further imaging. Will also add imaging of her hips to exclude occult hip fracture. Check stool studies. May need a brace but not sure she would wear this. Will have PT/OT started once imaging is complete. She may need placement, either temporary or permanent. Check TSH and add cortisol. Resume home meds when available. 07/21: Hip xray negative for fracture. Cervical spine xray showing no acute findings. Lumbar MR showing moderate T11 burst fracture with minimal 3mm retropulsion. Echo pending. Start PT/OT. Sodium remains unchanged with D5W since initial correction. Will stop IV fluids. No signifincat diarrhea. Eating reasonably well. Will remove Serna in the morning. If does well with therapy, possibly home tomorrow. DVT prophylaxis - Lovenox Code status - full Subjective Date/time seen: 07/21/23 13:43 Interval history: 82yo female with dementia, depression and hypothyroidism who is brought in to the ED for generalized weakness.?? Patient alert but confused and unable to provide history. 'I want my mother' Exam Narrative: AF 97.8 131/58 75 16 96% ra Gen - NARD Chest - CTA bilaterally, nml RR CV - RRR. S1-S2. Abd - soft. NT/ND Ext - no pedal edema. Neuro - alert but confused. Skin - warm and dry. Objective Data Vital Signs Vital Signs: Vital Signs - 24 hr 07/20/23 14:00 07/20/23 16:00 07/20/23 22:00 Temperature 98.5 F 98 F Pulse Rate 80 64 81 Respiratory Rate 18 16 Blood Pressure 118/51 L 136/60 Pulse Oximetry 98 95 Oxygen Delivery 07/20/23 20:00 07/21/23 00:00 07/21/23 04:00 Temperature Pulse Rate 69 79 71 Respiratory Rate Blood Pressure Pulse Oximetry Oxygen Delivery 07/21/23 06:00 07/21/23 08
[2023-07-21] MEDS: ACETAMINOPHEN 325 MG TABLET 650 MG PO (14:21)
[2023-07-21] MEDS: DONEPEZIL HCL 10 MG TABLET BY MOUTH (20:17)
[2023-07-22] VITALS: PULSE 67
[2023-07-22] MEDS: ACETAMINOPHEN 325 MG TABLET 650 MG PO ×2 (01:43→09:23)
[2023-07-22 04:00] VITALS: PULSE 72
[2023-07-22] MEDS: LEVOTHYROXINE SODIUM 75 MCG TABLET BY MOUTH (05:49)
[2023-07-22 05:51] VITALS: BP 154/55; PULSE 81; RESP 15; TEMP 36.4; O2SAT 98
[2023-07-22 08:00] VITALS: PULSE 63
[2023-07-22] MEDS: MEMANTINE 10 MG TABLET BY MOUTH (09:18)
[2023-07-22] MEDS: ROSUVASTATIN 10 MG TABLET BY MOUTH (09:18)
[2023-07-22] MEDS: FAMOTIDINE 20 MG TABLET BY MOUTH (09:18)
[2023-07-22] MEDS: busPIRone HCL 5 MG TABLET 15 MG BY MOUTH (09:18)
[2023-07-22] MEDS: ASPIRIN 81 MG CHEWABLE TABLET PO (09:19)
[2023-07-22] MEDS: ENOXAPARIN 40 MG/0.4 ML SYRINGE SUB-Q (09:19)
[2023-07-22] MEDS: HALOPERIDOL 0.5 MG TABLET BY MOUTH (09:19)
[2023-07-22] MEDS: SERTRALINE HCL 50 MG TABLET BY MOUTH (09:19)
[2023-07-22] MEDS: PYRIDOXINE HCL 50 MG TABLET PO (09:19)
--- NOTE | 2023-07-22 10:37 | PCOTNOTE ---
Attempted to evaluate pt. for occupational therapy services. Pt. encouraged to participate in activity, pt. somnolent and furrowing brow, unable to clarify reason for refusing to participate, but declining at this time. Nursing aware. Following.
--- NOTE | 2023-07-22 13:31 | PM.DS ---
DS: Admitting Diagnosis Discharge Date 07/22/23 Admitting Diagnosis Generalized weakness DS: Discharge Diagnosis Discharge Diagnosis (1) Generalized weakness: Code(s): R53.1 - Weakness Status: Acute (2) Elevated troponin: Code(s): R79.89 - Other specified abnormal findings of blood chemistry Status: Acute (3) Acute hyponatremia: Code(s): E87.1 - Hypo-osmolality and hyponatremia Status: Acute (4) Enterocolitis: Code(s): K52.9 - Noninfective gastroenteritis and colitis, unspecified Status: Acute (5) Elevated lactic acid level: Code(s): R79.89 - Other specified abnormal findings of blood chemistry Status: Acute (6) Stable burst fracture of T11 vertebra: Code(s): S22.081A - Stable burst fracture of T11-T12 vertebra, initial encounter for closed fracture Status: Acute (7) Urine retention: Code(s): R33.9 - Retention of urine, unspecified Status: Acute (8) Adult hypothyroidism: Code(s): E03.9 - Hypothyroidism, unspecified Status: Acute (9) Dementia: Code(s): F03.90 - Unspecified dementia, unspecified severity, without behavioral disturbance, psychotic disturbance, mood disturbance, and anxiety Status: Acute (10) Depressive disorder: Code(s): F32.9 - Major depressive disorder, single episode, unspecified Status: Acute DS: Summary Hospital Course Reason for hospitalization: 82yo female with dementia, depression and hypothyroidism who is brought in to the ED for generalized weakness.??Please see H&P for details. Hospital Course: Patient brought in for generalized weakness. In the ED, patient's vital signs were normal.? White count was 14K, sodium 126, glucose 143, lactic acid 2.3 (repeat normal), and troponin mildly elevated at 0.041.? EKG showed normal sinus rhythm with PACs, LAD and left BBB.? The BBB seems to be new from 2020.? UA was negative.? Influenza, RSV and COVID PCR was negative.? Procalcitonin 0.1.? Head CT was limited due to motion but no acute findings overall.? Chest x-ray showed moderate elevation right hemidiaphragm with mild infiltrate or atelectasis right lower lung.? CT of the abdomen and pelvis shows atelectasis or scarring in the lower lobes, moderately prominent T11 burst fracture, prominent fluid within the stomach and multiple nondilated fluid containing small bowel and right colon consistent with enterocolitis.? Patient was given Zofran and IV fluids.? She was admitted for further care. Noted that she had >800mL in her bladder despite recent voiding so Serna placed in ED. Unclear if patient fell on the floor or sat down since no family to corroborate events leading up to her admission. Hip xray negative for fracture. Cervical spine xray showing no acute findings. She has a T11 burst fracture which could be new and explain her poorly defined complaints of pain or old. She may have fallen due to weakness related to her enterocolitis which is probably from viral gastroenteritis. Lactic acid mildly elevated and now improved with IV fluids. Probably underlying dehydration with the hyponatremia. Sodium improved with IV fluids. Elevated Troponin noted and flat. Etiology unclear unless she was HoTN from dehydration but no evidence of this. Not tachycardic or hypoxic to suggest PE. Her EKG does show 'new' Lt BBB but when compared to 2020 so unclear how new this is. Echo showing EF 65-70% with Grade I diastolic dysfunction and trace valvular disease. For her possibly urine retention, Serna trial showed patient could void on her own. MR lumbar spine did not show spinal stenosis but did again show T11 burst fracture with minimal 3mm retropulsion. Unclear if acute or chronic and givenher dementia and poor mobility, it was opted not to recommend TLSO brace. Diarrhea improved. Stool studies ordered but not collected. She worked with PT/OT. Plan for home with family and with home health. Attempted to call yadiel galan
--- NOTE | 2023-07-22 14:42 | PC.NURSE ---
iv out, all belongings returned, family picked up by private car. wheeled out by nurse aid. d/c papers signed by daughter, denies questions.
== END 2023-07-22 14:44 | disposition home health service (06) ==
LOC: ANHED 07-20 03:14 → ANH3MEDSUR 07-22 12:57 → ANHIMU 07-23 10:21
PROVIDERS: Admitting Provider Internal Medicine; Emergency Provider Emergency Medicine; PCP Internal Medicine; Visit Provider Internal Medicine
DX: S22.081A Stable burst fracture of T11-T12 vertebra, initial encounter for closed fracture (principal); X58.XXXA Exposure to other specified factors, initial encounter; R53.1 Weakness; R79.89 Other specified abnormal findings of blood chemistry; E87.1 Hypo-osmolality and hyponatremia; K52.9 Noninfective gastroenteritis and colitis, unspecified; R33.9 Retention of urine, unspecified; E03.9 Hypothyroidism, unspecified; G30.9 Alzheimer's disease, unspecified; F02.80 Dementia in other diseases classified elsewhere, unspecified severity, without behavioral disturbance, psychotic disturbance, mood disturbance, and anxiety; F41.9 Anxiety disorder, unspecified; F32.9 Major depressive disorder, single episode, unspecified; I70.0 Atherosclerosis of aorta; M85.80 Other specified disorders of bone density and structure, unspecified site; Z20.822 Contact with and (suspected) exposure to COVID-19; K21.9 Gastro-esophageal reflux disease without esophagitis; K57.90 Diverticulosis of intestine, part unspecified, without perforation or abscess without bleeding; M47.814 Spondylosis without myelopathy or radiculopathy, thoracic region; M47.816 Spondylosis without myelopathy or radiculopathy, lumbar region; M47.817 Spondylosis without myelopathy or radiculopathy, lumbosacral region; I51.89 Other ill-defined heart diseases; R94.31 Abnormal electrocardiogram [ECG] [EKG]; E78.49 Other hyperlipidemia; E51.9 Thiamine deficiency, unspecified; E53.8 Deficiency of other specified B group vitamins; E55.9 Vitamin D deficiency, unspecified; F10.90 Alcohol use, unspecified, uncomplicated; Z90.49 Acquired absence of other specified parts of digestive tract; Z79.51 Long term (current) use of inhaled steroids; Z79.899 Other long term (current) drug therapy
CPT/HCPCS: 36415; 70450; 71045; 72125; 72158; 73521; 74177; 80048; 80053; 81003; 82533; 83605; 83690; 83735; 84145; 84295; 84443; 84484; 85025; 85610; 85730; 87637; 93005; 93306; 96361; 96365; 96366; 96372; 96374; 96375; 97161; 97166; 99285; A9270; A9577; G0378; J1650; J2405; J7030; J7070; Q9967

== ENCOUNTER 2023-08-26 14:41 | Outpatient (CLI) | payer MEDICARE, SELFPAY ==
--- NOTE | ~2023-08-26 | XR_ITS ---
EXAMINATION: XR chest 2V Exam Date/Time: 08/26/2023 14:55 HAND II THERMAL CUTTER HISTORY: R07.81 - Pleurodynia Comparison: 07/20/2023, 08/08/2020; MR L-spine 07/20/2023. RESULT: Lines, tubes, and devices: Cholecystectomy clips. Lungs and pleura: Senescent changes, bibasilar scar/atelectasis otherwise clear. Cardiomediastinal silhouette: Stable. Right hemidiaphragm elevation. Other: No acute upper abdominal finding. Severe anterior wedge deformity at T11 IMPRESSION: No acute cardiopulmonary process. Worsening, now severe wedge compression fracture at T11. Reviewed, dictated and finalized at location K. II THERMAL CUTTER IMPRESSION: No acute cardiopulmonary process. Worsening, now severe wedge compression fract ure at T11.
--- NOTE | ~2023-08-26 | XR_ITS ---
EXAM: XR hip LT 2V w AP pelvis DATE: 08/26/2023 15:03 HISTORY: M25.552 - Pain in left hip . COMPARISON: 07/20/2023. FINDINGS: Decreased mineralization. No fracture or dislocation. No lytic or blastic lesion. Mild lum bar degenerative disc disease. Mild degenerative changes in the bilateral hips and pubic symphysis. S urgical clip over the pelvis. No erosion or periosteal change. Soft tissues within normal limits. IMPRESSION: Mild bilateral hip osteoarthritis. Mild osteitis pubis. Reviewed, dictated and finalized at location K. ORY MAINTENANCE TECHNICIAN
== END 2023-08-26 14:42 | disposition home or self-care (01) ==
PROVIDERS: PCP Internal Medicine; Visit Provider Internal Medicine
DX: R07.81 Pleurodynia (principal); M25.552 Pain in left hip; M16.0 Bilateral primary osteoarthritis of hip
CPT/HCPCS: 71046; 73502

== ENCOUNTER 2023-11-04 12:07 | Outpatient (CLI) | payer MEDICARE, SELFPAY ==
[2023-11-04 12:51] LABS: Basophils Absolute Auto 0.1 K/mm3 (0.0-0.1); Basophils Percent Auto 0.6 % (0.2-1.2); Eosinophils Absolute Auto 0.1 K/mm3 (0-0.3); Eosinophils Percent Auto 1.5 % (0-4.4); Hematocrit 44.5 % (37.0-47.0); Hemoglobin 14.3 g/dL (12.0-15.0); Immature Granulocyte Absolute 0.02 K/mm3 (0.00-0.031); Immature Granulocyte Percent A 0.3 % (0-0.5); Lymphocytes Absolute Auto 2.47 K/mm3 (0.9-3.2); Lymphocytes Percent Auto 31.5 % (18.3-44.2); Mean Corpuscular HGB Conc 32.1 g/dl (32-36); Mean Corpuscular Hemoglobin 30.8 pg (26-34); Mean Corpuscular Volume 95.7 fl (80-100); Mean Platelet Volume 9.6 fl (7.4-10.4); Monocytes Absolute Auto 0.7 K/mm3 (0.1-0.6); Monocytes Percent Auto 8.3 % (2.6-8.5); Neutrophils Absolute Auto 4.5 K/mm3 (1.3-6.7); Neutrophils Percent Auto 57.8 % (45.5-73.1); Platelet Count Result 296 k/mm3 (150-375); Red Blood Count 4.65 M/mm3 (4.2-5.4); Red Cell Distribution Width 14.4 % (11.5-14.5); White Blood Count 7.8 K/mm3 (4.5-10.0)
[2023-11-04 13:04] LABS: Alanine Aminotransferase 17 U/L (6-35); Albumin Level 4.5 g/dL (3.5-5.1); Alkaline Phosphatase 115 U/L (38-126); Anion Gap 10 mmol/L (4-12); Aspartate Amino Transferase 23 U/L (14-36); Bilirubin,Total 0.8 mg/dL (0.2-1.3); Blood Urea Nitrogen 17 mg/dL (7-17); Carbon Dioxide 18 mmol/L (22-30); Chloride 113 mmol/L (98-107); Estimated Glomerular Filt Rate > 60; Glucose 129 mg/dL (65-110); Potassium 3.8 mmol/L (3.4-5.0); Sodium 141 mmol/L (137-145)
[2023-11-04 13:55] LABS: Free T4 Free Thyroxine 1.37 ng/mL (0.78-2.19); Vitamin D 25 Hydroxy 37.3 ng/mL
== END 2023-11-04 12:08 | disposition home or self-care (01) ==
PROVIDERS: PCP Internal Medicine; Visit Provider Internal Medicine
DX: E03.9 Hypothyroidism, unspecified (principal); E55.9 Vitamin D deficiency, unspecified; Z79.899 Other long term (current) drug therapy
CPT/HCPCS: 36415; 80053; 82306; 84439; 84443; 85025

== ENCOUNTER 2024-01-20 15:54 | Outpatient (CLI) | payer MEDICARE, SELFPAY ==
--- NOTE | ~2024-01-20 | XR_ITS ---
EXAM: XR hip RT 2V w AP pelvis DATE: 01/20/2024 16:14 HISTORY: M25.559 - Pain in unspecified hip . COMPARISON: 08/26/2023. FINDINGS: Decreased mineralization. No fracture or dislocation. No lytic or blastic lesion. Mild george ateral superior hip joint space narrowing. Mild degenerative change at the pubic symphysis. Mild lowe r lumbar degenerative disc disease. Surgical clips over the midline pelvis No erosion or periosteal c hange. Soft tissues within normal limits. IMPRESSION: Mild bilateral hip osteoarthritis. Reviewed, dictated and finalized at location K.
== END 2024-01-20 15:55 | disposition home or self-care (01) ==
PROVIDERS: PCP Internal Medicine; Visit Provider Internal Medicine
DX: M16.0 Bilateral primary osteoarthritis of hip (principal)
CPT/HCPCS: 73502

== ENCOUNTER 2024-03-23 12:46 | Outpatient (CLI) | payer MEDICARE, SELFPAY ==
--- NOTE | ~2024-03-23 | XR_ITS ---
AP view of the pelvis and AP and lateral views of the left hip Clinical history: Pain Findings: No acute fracture or dislocation is seen. Osseous alignment is anatomic. Bilateral hip and SI joint spaces are preserved. Soft tissues are unremarkable. Impression: No significant abnormality is seen. Reviewed, dictated and finalized at [facility]. Impression: No significant abnormality is seen.
[2024-03-23 14:14] LABS: Alanine Aminotransferase 22 U/L (6-35); Albumin Level 4.6 g/dL (3.5-5.1); Alkaline Phosphatase 133 U/L (38-126); Anion Gap 13 mmol/L (4-12); Aspartate Amino Transferase 27 U/L (14-36); Blood Urea Nitrogen 22 mg/dL (7-17); Calcium 9.8 mg/dL (8.4-10.2); Carbon Dioxide 22 mmol/L (22-30); Chloride 106 mmol/L (98-107); Cholesterol 158 mg/dL (0-200); Estimated Glomerular Filt Rate 60; Glucose 107 mg/dL (65-110); HDL Direct 75 mg/dL; Potassium 4.1 mmol/L (3.4-5.0); Sodium 141 mmol/L (137-145); Triglycerides 145 mg/dL (<150)
[2024-03-23 14:27] LABS: LDL Cholesterol Direct 53 mg/dL
[2024-03-23 15:27] LABS: Free T4 Free Thyroxine 1.29 ng/mL (0.78-2.19)
[2024-03-23 16:48] LABS: Folic Acid > 20.0 ng/mL (2.76->20); Vitamin B12 > 1000.0 pg/mL (239-931)
[2024-03-25 23:19] LABS: Vitamin B6 36.3 ng/mL (2.1-21.7)
[2024-03-31 14:20] LABS: Vitamin B2 >300.0 nmol/L (6.2-39.0)
== END 2024-03-23 12:47 | disposition home or self-care (01) ==
LOC: ANHLAB 12:53
PROVIDERS: PCP Internal Medicine; Visit Provider Internal Medicine
DX: M25.552 Pain in left hip (principal); R10.2 Pelvic and perineal pain; E78.5 Hyperlipidemia, unspecified; E03.9 Hypothyroidism, unspecified; E51.9 Thiamine deficiency, unspecified; E53.8 Deficiency of other specified B group vitamins; E53.9 Vitamin B deficiency, unspecified; Z79.899 Other long term (current) drug therapy; W19.XXXA Unspecified fall, initial encounter
CPT/HCPCS: 36415; 73502; 80053; 80061; 82607; 82746; 84207; 84252; 84425; 84439; 84443

== ENCOUNTER 2024-12-11 21:31 | Emergency (ER) | payer MEDICARE, SELFPAY ==
--- NOTE | ~2024-12-11 | XR_ITS ---
CHEST RADIOGRAPH CLINICAL HISTORY: CHEST PAIN . COMPARISON: 08/26/2023 TECHNIQUE: Single portable view of the chest. FINDINGS The cardiomediastinal silhouette is unremarkable. The lungs are clear. IMPRESSION: No focal infiltrate or effusion. Reviewed, dictated and finalized at location A.
[2024-12-11 21:30] VITALS: BP 159/74; PULSE 62; RESP 18; TEMP 36.4; O2SAT 98
--- NOTE | 2024-12-11 21:37 | ECG_ITS ---
Test Date: 2024-12-11 21:39:54 Measurements Intervals [place] Rate: 64 P: 57 IN: 198 QRS: -36 QRSD: 144 T: 80 QT: 435 QTc: 451 Interpretive Statements SINUS RHYTHM LEFT AXIS DEVIATION LEFT BUNDLE BRANCH BLOCK BASELINE ARTIFACT- I, II, III, AVR, AVL, AVF ABNORMAL ECG No previous ECG available for comparison Electronically Signed On 12-12-2024 07:10:27 CDT by Toni Sharif D.O.
[2024-12-11 21:49] LABS: Basophils Percent Auto 0.4 % (0.2-1.2); Eosinophils Absolute Auto 0.2 K/mm3 (0-0.3); Eosinophils Percent Auto 1.5 % (0-4.4); Hematocrit 43.7 % (37.0-47.0); Hemoglobin 14.3 g/dL (12.0-15.0); Immature Granulocyte Absolute 0.04 K/mm3 (0.00-0.031); Immature Granulocyte Percent A 0.4 % (0-0.5); Lymphocytes Absolute Auto 2.79 K/mm3 (0.9-3.2); Lymphocytes Percent Auto 27.2 % (18.3-44.2); Mean Corpuscular HGB Conc 32.7 g/dl (32-36); Mean Corpuscular Hemoglobin 31.4 pg (26-34); Mean Platelet Volume 9.2 fl (7.4-10.4); Monocytes Absolute Auto 0.9 K/mm3 (0.1-0.6); Monocytes Percent Auto 8.6 % (2.6-8.5); Neutrophils Absolute Auto 6.4 K/mm3 (1.3-6.7); Neutrophils Percent Auto 61.9 % (45.5-73.1); Platelet Count Result 272 k/mm3 (150-375); Red Blood Count 4.55 M/mm3 (4.2-5.4); Red Cell Distribution Width 13.5 % (11.5-14.5); White Blood Count 10.3 K/mm3 (4.5-10.0)
[2024-12-11] MEDS: ASPIRIN 81 MG CHEWABLE TABLET 324 MG PO (21:55)
--- OUTSIDE RECORDS SUMMARY | 2024-12-11 21:58 | XMS_ITS | Clinical Summary ---
Author Organization [facility] Address [address] [place] [address] Care Team Providers Care Elevator Constructor Electric Name Role Phone Romaine Allen DO Primary Care Provider [phone] Allergies Active Allergy Reactions Criticality Noted Date Comments Ampicillin Rash Medium 11/14/2020 Cefuroxime Hives Medium 11/14/2020 Chlordiazepoxide Hives Medium 11/14/2020 Ciprofloxacin Diarrhea Low 11/14/2020 Clidinium [place] Rash Medium 11/14/2020 Codeine Other (See comments) Low 11/14/2020 Don't know Penicillin G Other (See comments) Low 11/14/2020 Don't know Sodium Phenylbutyrate Other (See comments) Low 10/28 hypertention Tetracycline Other (See comments) Low 11/14/2020 Don't know Medications FLUoxetine 10 mg capsule 1 Active amitriptyline (ELAVIL) 25 mg tablet 1 Active hyoscyamine (LEVSIN) 0.125 mg tablet TAKE 1 TO 2 TABLETS BY MOUTH EVERY 4 HOURS NEEDED 1 Active MOUTHWASHES MM USE 5ML BY MOUTH THREE TIMES DAILY DIRECTED 1 Active donepeziL (ARICEPT) 5 mg tablet Take 5 mg by mouth nightly 1 Active famotidine (PEPCID) 20 mg tablet Take 20 mg by mouth daily 1 Active fluticasone propionate (FLONASE) 50 mcg/actuation nasal spray SHAKE LIQUID AND USE 2 SPRAYS IN EACH NOSTRIL DAILY 1 Active levothyroxine (SYNTHROID) 75 mcg tablet Take 75 mcg by mouth daily 1 Active ondansetron ODT (ZOFRAN-ODT) 4 mg disintegrating tablet DISSOLVE 1 TABLET IN MOUTH EVERY 8 HOURS NEEDED FORNAUSEA AND VOMITING 1 Active rosuvastatin (CRESTOR) 10 mg tablet Take 10 mg by mouth daily Active cetirizine 10 mg capsule Take by mouth Active Active Problems Problem Noted Date Diagnosed Date Memory loss 11/14/2020 Assessment & Plan (11/14/2020 4:07 PM CDT): Patient has a 2-3 year history of progressive cognitive loss clinically suspect for dementia of Alzheimer's type advanced. I will obtain MRI brain, TSH, T4, B12, treponemal antibody survey to screen for alternate etiologies which could mimic dementia of Alzheimer's type. I will see her back thereafter. Surgical History Surgery Date Site/Laterality Comments HYSTERECTOMY ORAL SURGERY Medical History Medical History Date Comments Depression Family History Medical History Relation Name Comments black lung Father No Known Problems Mother Relation Name Status Comments Brother 1 Alive Brother 2 Alive Brother 3 Alive Father Mother Social History Tobacco Use Types Packs/Day Years Used Date Smoking Tobacco: Never Smokeless Tobacco: Never Personal Safety Answer Date Recorded Getting School Help Needed Not on file 07/31 Comments Unknown Sex and Gender Information Value Date Recorded Sex Assigned at Not on file Legal Sex Female 3:57 PM CDT Gender Identity Not on file Sexual Orientation Not on file Obstetrics History Last Filed Vital Signs Vital Sign Reading Time Taken Comments Blood Pressure 122/70 11/14/2020 3:30 PM CDT Pulse 115 11/14/2020 3:30 PM CDT Temperature 36.5 C (97.7 F) 11/14/2020 3:30 PM CDT Respiratory Rate - - Oxygen Saturation - - Inhaled Oxygen Concentration - - Weight 70.4 kg (155 lb 3.2 oz) 11/14/2020 3:30 P M CDT Height 167.6 cm (5' 6) 11/14/2020 3:30 PM CDT Body Mass Index 25.05 11/14/2020 3:30 PM CDT Plan of Treatment Not on file Insurance [facility] MEDICARE ADVANTAGE Care Teams Elevator Constructor Electric Relationship Specialty Start Date End Date Romaine Allen DO PCP - General Internal Medicine 11/13/20
--- OUTSIDE RECORDS SUMMARY | 2024-12-11 21:58 | XMS_ITS | Referral Summary ---
Author Organization [facility] Address [address] [place] [address] Care Team Providers Care Workers Compensation Attorney Name Role Phone Romaine Allen DO Primary Care Provider [phone] Allergies Active Allergy Reactions Criticality Noted Date Comments Ampicillin Rash Medium 11/14/2020 Cefuroxime Hives Medium 11/14/2020 Chlordiazepoxide Hives Medium 11/14/2020 Ciprofloxacin Diarrhea Low 11/14/2020 Clidinium [place] Rash Medium 11/14/2020 Codeine Other (See comments) [...] type. I will see her back thereafter. Social History Tobacco Use Types Packs/Day Years Used Date Smoking Tobacco: Never Smokeless Tobacco: Never Personal Safety Answer Date Recorded Getting School Help Needed Not on file 07/31 Comments Unknown Sex and Gender Information Value Date Recorded Sex Assigned at Not on file Legal Sex Female 3:57 PM CDT Gender Identity Not on file Sexual Orientation Not on file Last Filed Vital Signs Vital Sign Reading [...] Plan of Treatment Not on file Insurance [facility] MEDICARE ADVANTAGE Care Teams Workers Compensation Attorney Relationship Specialty Start Date End Date Romaine Allen DO PCP - General Internal Medicine 11/13/20
[2024-12-11 21:59] LABS: Alanine Aminotransferase 19 U/L (6-35); Albumin Level 4.2 g/dL (3.5-5.1); Alkaline Phosphatase 107 U/L (38-126); Anion Gap 8 mmol/L (4-12); Aspartate Amino Transferase 26 U/L (14-36); Bilirubin,Total 0.5 mg/dL (0.2-1.3); Blood Urea Nitrogen 18 mg/dL (7-17); Calcium 10.1 mg/dL (8.4-10.2); Carbon Dioxide 26 mmol/L (22-30); Chloride 106 mmol/L (98-107); Estimated Glomerular Filt Rate > 60; Glucose 95 mg/dL (65-110); Lipase 113 U/L (23-300); Potassium 4.3 mmol/L (3.4-5.0); Sodium 140 mmol/L (137-145); Total Protein 7.3 g/dL (6.3-8.2)
[2024-12-11 22:00] LABS: Partial Thromboplastin Time 24.4 Seconds (22.3-36.8); Prothrombin Time 13.4 Seconds (11.1-14.7)
[2024-12-11 22:11] LABS: Troponin I < 0.012 ng/mL (0.000-0.034)
[2024-12-11 22:17] VITALS: BP 172/81; PULSE 69; RESP 20; O2SAT 100
[2024-12-11 22:32] VITALS: BP 177/92; PULSE 71; RESP 26
[2024-12-11 22:47] VITALS: BP 194/124; PULSE 70; RESP 17
--- NOTE | 2024-12-11 22:57 | ED.CHESTPAIN ---
HPI - Chest Pain General Chief Complaint: Chest Pain Stated Complaint: Chest pain/not eating well Time Seen by Provider: 12/11/24 21:45 History of Present Illness HPI narrative: For last 1-2 days patient has not been eating as much as usual, there is reported chest pain however patient denies this, her daughter at bedside also states that the patient is fine and has no issues, she is DNR/DNI and they are trying to limit going to the hospitals much as possible. Highway Administrative Engineer for the patient did mention that she may have some foul-smelling urine. Related Data Home Medications ?Medication ?Instructions ?Recorded ?Confirmed ?Last Taken ?Type pyridoxine (vitamin B6) 100 mg 50 mg PO DAILY 11/06/22 03/23/24 Unknown History tablet Allergies Allergy/AdvReac Type Severity Reaction Status Date / Time Penicillins Allergy Severe Anaphylaxis Verified 12/11/24 21:43 ampicillin Allergy Mild Rash Verified 12/11/24 21:43 cefuroxime Allergy Mild Hives Verified 12/11/24 21:43 chlordiazepoxide Allergy Mild Hives Verified 12/11/24 21:43 ciprofloxacin Allergy Mild Diarrhea Verified 12/11/24 21:43 codeine Allergy Mild pt does Verified 12/11/24 21:43 not know tetracycline Allergy Mild pt does Verified 12/11/24 21:43 not know CIPROFLOXACIN HCL Allergy Mild BAD Uncoded 12/11/24 21:43 SECONDARY REACTION, YEAST INFECT. ECT. CLIDINIUM BROMIDE Allergy Mild RASH Uncoded 12/11/24 21:43 SODIUM PENTATHAL Allergy Mild HYPERTENSIO Uncoded 12/11/24 21:43 N Review of Systems Review of Systems: Patient denies any complaints or pain anywhere PMFSH Past Medical History Medical History (Updated 12/11/24 @ 23:48 by Carri King MD) BMI 20.0-20.9, adult UTI (urinary tract infection) Hospital discharge follow-up Encounter for Medicare annual wellness exam Benign essential hypertension Fracture of clavicle Rib pain on left side Left hip pain Insomnia UTI (urinary tract infection) BMI 22.0-22.9, adult Bruxism BMI 25.0-25.9,adult BMI 28.0-28.9,adult Encounter for routine adult health examination with abnormal findings Anxiety Vertigo Alzheimers disease Vitamin D deficiency BMI 26.0-26.9,adult BMI 27.0-27.9,adult Foot pain, bilateral Vitamin B12 deficiency Vitamin B1 deficiency Epigastric pain Abdominal pain Dysuria Trigger thumb, left thumb Myalgia Altered mental status Cognitive dysfunction Nausea Follow up Acute intractable headache On oil heaterman drug therapy BMI 23.0-23.9, adult Encounter to establish care Constipation Depressive disorder Dermatitis Generalized osteoarthritis Other and unspecified hyperlipidemia Irritable bowel syndrome with constipation Postmenopausal Raynaud's disease without gangrene Adult hypothyroidism Basal cell carcinoma Chronic GERD Memory loss Surgical History Surgical History History of colonoscopy History of surgical removal of skin lesion basal cell carcinoma removed from RT nasal ala History of cholecystectomy 2000 Hx of sinus surgery 2004 History of removal of cyst 1994 History of hysterectomy 1987 Family History Family History Father Cerebrovascular accident Social History Social History Smoking status: Never smoker Second hand tobacco smoke exposure: No Alcohol intake: never Substance use: never Lack of Transportation: No Lack of Food: Never True Current Housing: I Have Housing Concerned About Future Housing: No Difficulty Paying Gas/Electric Bills: No Difficulty Paying for Meds: No Currently Unemployed: No Difficulty w/ Childcare or Family Care: No Living arrangements: other Occupation/Education: retired Gender identity (if verbalized by the patient): Female Spiritual care concerns: No Exam Narrative: EXAMINATION OF ORGAN SYSTEMS/BODY AREAS: Constitutional: Vital signs per nursing GENERAL:[No acute distress, non-toxic appearing.] HEAD: Normal with no signs of head trauma. EYES: EOMI, conjunctiva normal ENT: Hearing grossly intact LUNGS: Nonlabored breathing. HEART: [Regular rate and rhythm] ABD: [Soft], [nontender to palpation] EXT: Normal range of motion SKIN: [No rashes or lesions.] NEURO: [Alert, pleasantly demented. No gross focal sensory or strength deficits.] PSYCH: Normal affect Course Vital Signs Vital signs: Vital Signs Temperature 97.6 F 12/11/24 21:30 Pulse Rate 62 12/11/24 21:30 Respiratory Rate 18 12/11/24 21:30 Blood Pressure 159/74 H 12/11/24 21:30 Pulse Oximetry 98 12/11/24 21:30 Temperature 97.6 F 12/11/24 21:30 Pulse Rate 70 12/11/24 22:47 Respiratory Rate 17 12/11/24 22:47 Blood Pressure 194/124 H 12/11/24 22:47 Pulse Oximetry 99 12/11/24 23:18 Oxygen Delivery Room Air 12/11/24 23:18 MDM - Chest Pain MDM Narrative Medical decision making narrative: Patient presents here denying any complaints, there is reported chest pain at some point but none now, and possible foul-smelling urine and poor appetite. Patient here has been eating and drinking normally without issues, she is in no distress, very well-appearing, pleasantly demented. Labs including troponin within acceptable limits. Chest x-ray on my independent interpretation without any obvious pneumothorax or consolidation EKG on my independent interpretation shows sinus rhythm rate 64, [place] 198, QRS 144, QTC 451, left axis deviation, and left bundle-branch block, I cannot open prior EKGs however based on interpretation of her last EKG, there did not seem to be much difference. UA does show possible UTI, per her daughter, given her very many allergies, Keflex usually works for her UTI so I will give her a dose of this here and a prescription, with follow-up to her primary care doctor for further evaluation, I did also let them know that the urine culture may result and she may need to be started on a different antibiotic and they are agreeable and aware of this. They would like to go home at this time . At time discharge, patient continues to be very well-appearing, she does not appear to have had any signs of arrhythmia on her telemetry during her time here. Lab Data 12/11/24 21:43 12/11/24 21:43 Labs: Lab Results 12/11/24 12/11/24 Range/Units 21:43 23:17 WBC 10.3 H (4.5-10.0) K/mm3 RBC 4.55 (4.2-5.4) M/mm3 Hgb 14.3 (12.0-15.0) g/dL Hct 43.7 (37.0-47.0) % MCV 96.0 (80-100) fl MCH 31.4 (26-34) pg MCHC 32.7 (32-36) g/dl RDW 13.5 (11.5-14.5) % Plt Count 272 (150-375) k/mm3 MPV 9.2 (7.4-10.4) fl Immature Gran % (Auto) 0.4 (0-0.5) % Neut % (Auto) 61.9 (45.5-73.1) % Lymph % (Auto) 27.2 (18.3-44.2) % [place] % (Auto) 8.6 H (2.6-8.5) % Eos % (Auto) 1.5 (0-4.4) % Baso % (Auto) 0.4 (0.2-1.2) % Lymph # (Auto) 2.79 (0.9-3.2) K/mm3 [place] # (Auto) 0.9 H (0.1-0.6) K/mm3 Eos # (Auto) 0.2 (0-0.3) K/mm3 Baso # (Auto) 0.0 (0.0-0.1) K/mm3 Abs Immat Gran (auto) 0.04 H (0.00-0.031) K/mm3 Absolute Neuts (auto) 6.4 (1.3-6.7) K/mm3 Absolute Nucleated RBC 0.000 (0.0-0.012) K/mm3 Nucleated RBC % 0.0 (0.0-0.2) % PT 13.4 (11.1-14.7) Seconds INR 1.0 APTT 24.4 (22.3-36.8) Seconds Sodium 140 (137-145) mmol/L Potassium 4.3 (3.4-5.0) mmol/L Chloride 106 (98-107) mmol/L Carbon Dioxide 26 (22-30) mmol/L Anion Gap 8 (4-12) mmol/L BUN 18 H (7-17) mg/dL Creatinine 0.86 (0.7-1.0) mg/dL Estim Creat Clear Calc Not Reportable Estimated GFR > 60 (59 - ) Glucose 95 (65-110) mg/dL Calcium 10.1 (8.4-10.2) mg/dL Total Bilirubin 0.5 (0.2-1.3) mg/dL AST 26 (14-36) U/L ALT 19 (6-35) U/L Alkaline Phosphatase 107 (38-126) U/L Troponin I < 0.012 (0.000-0.034) ng/mL Total Protein 7.3 (6.3-8.2) g/dL Albumin 4.2 (3.5-5.1) g/dL Lipase 113 (23-300) U/L Urine Color Yellow (Yellow) Urine Appearance Clear (Clear) Urine pH 5.5 (5.0-9.0) Ur Specific [place] 1.012 (1.001-1.035) Urine Protein Negative (Negative) mg/dL Urine Glucose (UA) Negative (Negative) mg/dL Urine Ketones Negative (Negative) mg/dL Ur Blood (Man) Negative (Negative) Urine Nitrate Positive H (Negative) Urine Bilirubin Negative (Negative) Urine Urobilinogen 0.2 (<2.0) mg/dL Add Ur Microanalysis Reviewed Leukocyte Esterase Rfl 2+ H (Negative) ODIN/UL Urine RBC 0-2 (0-2) /hpf Urine WBC 21-50 H (0-3) /hpf Ur Squamous Epith Cells None seen (Few) /hpf Urine Bacteria 4+ H /hpf Urine Casts 0-2 Discharge Plan Discharge Clinical Impression: Acute UTI Patient Disposition: Home Condition: Stable Instructions: Antibiotic Form, Urinary Tract Infection in Women (ED) Additional Instructions: Please take the antibiotics as prescribed and follow up with her doctor, she can always return to the emergency room for any further issues. She may have to follow-up on the urine culture to make sure that the antibiotics will be effective. Patient Language: Brazilian Prescriptions: New cephalexin 500 mg capsule 500 mg PO Q6H 7 Days Qty: 28 0RF No Action (DME) Hospital Bed with rails See Rx Instructions .Route .MEDSUPPLY Qty: 1 0RF Rx Instructions: As directed (DME) diaper,brief,adult,disposable Misc See Rx Instructions .Route Qty: 48 5RF Rx Instructions: As directed pyridoxine (vitamin B6) 100 mg tablet 50 mg PO DAILY (DME) Nebulizer Machine with face mask and tubing See Rx Instructions .Route .MEDSUPPLY Qty: 1 0RF Rx Instructions: As directed tramadol 50 mg tablet 50 mg PO Q6H PRN (Reason: pain) Qty: 50 0RF rosuvastatin 10 mg tablet See Rx Instructions .ROUTE .COMPLEX Qty: 90 1RF Dose Instruction: TAKE 1 TABLET BY MOUTH DAILY Rx Instructions: TAKE 1 TABLET BY MOUTH DAILY famotidine 20 mg tablet See Rx Instructions .ROUTE .COMPLEX Qty: 180 0RF Dose Instruction: TAKE 1 TABLET BY MOUTH TWICE DAILY Rx Instructions: TAKE 1 TABLET BY MOUTH TWICE DAILY levothyroxine 75 mcg tablet See Rx Instructions .ROUTE .COMPLEX Qty: 90 2RF Dose Instruction: TAKE 1 TABLET BY MOUTH DAILY Rx Instructions: TAKE 1 TABLET BY MOUTH DAILY memantine 10 mg tablet See Rx Instructions .ROUTE .COMPLEX Qty: 180 0RF Dose Instruction: TAKE 1 TABLET BY MOUTH TWICE DAILY Rx Instructions: TAKE 1 TABLET BY MOUTH TWICE DAILY donepezil 10 mg tablet See Rx Instructions .ROUTE .COMPLEX Qty: 90 0RF Dose Instruction: TAKE 1 TABLET BY MOUTH EVERY DAY AT BEDTIME Rx Instructions: TAKE 1 TABLET BY MOUTH EVERY DAY AT BEDTIME haloperidol 1 mg tablet 1 mg PO TID Qty: 270 0RF buspirone 15 mg tablet See Rx Instructions .ROUTE .COMPLEX Qty: 180 0RF Dose Instruction: TAKE 1 TABLET BY MOUTH THREE TIMES DAILY Rx Instructions: TAKE 1 TABLET BY MOUTH THREE TIMES DAILY sertraline 50 mg tablet See Rx Instructions .ROUTE .COMPLEX Qty: 90 0RF Dose Instruction: TAKE 1 TABLET BY MOUTH DAILY. Rx Instructions: TAKE 1 TABLET BY MOUTH DAILY IN THE MORNING. Follow-up/Referrals: Luis Enrique Rodriguez MD [Primary Care Provider] -
[2024-12-11 23:18] VITALS: O2SAT 99
[2024-12-11 23:39] LABS: Add Urine Microscopic? YES; Appearance Urine Clear (Clear); Bacteria Urine 4+ /hpf; Bilirubin Urine Negative (Negative); Blood Urine Negative (Negative); Color Urine Yellow (Yellow); Glucose Urine UA Negative (Negative); Ketones Urine Negative (Negative); Leukocyte Esterase Ur 2+ LEU/UL (Negative); Need Manual Microscopic Reviewed; Nitrate Urine Positive (Negative); Non Pathogenic Casts 0-2; Protein Urine Negative (Negative); RBC Urine 0-2 /hpf (0-2); Specific Grav Ur 1.012 (1.001-1.035); Squamous Epithelial Cell Urine None Seen /hpf (Few); Urobilinogen Urine 0.2 mg/dL (<2.0); WBC Urine 21-50 /hpf (0-3); pH Urine 5.5 (5.0-9.0)
[2024-12-12] MEDS: CEPHALEXIN 500 MG CAPSULE PO (00:04)
[2024-12-12 00:26] VITALS: BP 162/77; PULSE 76; RESP 18; O2SAT 97
[2024-12-12] MEDS: HALOPERIDOL 1 MG TABLET PO (02:49)
== END 2024-12-12 03:16 | disposition home or self-care (01) ==
PROVIDERS: Emergency Provider Emergency Medicine; PCP Internal Medicine
DX: N39.0 Urinary tract infection, site not specified (principal); R07.9 Chest pain, unspecified; G30.9 Alzheimer's disease, unspecified; F02.80 Dementia in other diseases classified elsewhere, unspecified severity, without behavioral disturbance, psychotic disturbance, mood disturbance, and anxiety; I10 Essential (primary) hypertension; I73.00 Raynaud's syndrome without gangrene; E55.9 Vitamin D deficiency, unspecified; E78.5 Hyperlipidemia, unspecified; E51.9 Thiamine deficiency, unspecified; E03.9 Hypothyroidism, unspecified; K58.1 Irritable bowel syndrome with constipation; M19.90 Unspecified osteoarthritis, unspecified site; K21.9 Gastro-esophageal reflux disease without esophagitis; F32.A Depression, unspecified; F41.9 Anxiety disorder, unspecified; Z85.828 Personal history of other malignant neoplasm of skin; Z66 Do not resuscitate; Z90.49 Acquired absence of other specified parts of digestive tract; Z90.710 Acquired absence of both cervix and uterus; Z79.899 Other long term (current) drug therapy; I44.7 Left bundle-branch block, unspecified
CPT/HCPCS: 36415; 71045; 80053; 81001; 83690; 84484; 85025; 85610; 85730; 87086; 87186; 93005; 99284; A9270